=== PATIENT | female | born 1955 | race Two or more races ===

== ENCOUNTER → 2024-05-07 | Outpatient (CLI) | payer OTHER, SELFPAY ==
[2024-05-07 10:52] LABS: Glucose Estimated Average 140 mg/dL (80-131); Hemoglobin A1C 6.5 % Hgb (4.8-6.0)
== END | disposition home or self-care (01) ==
LOC: COPL 09:15
PROVIDERS: PCP Family Medicine; Referring Provider Family Medicine; Visit Provider Family Medicine
DX: E11.65 Type 2 diabetes mellitus with hyperglycemia (principal)
CPT/HCPCS: 36415; 83036

== ENCOUNTER 2024-05-17 05:51 | Emergency (ER) | payer OTHER, SELFPAY ==
[2024-05-17 05:51] VITALS: PULSE 89; RESP 20; O2SAT 98; BMI 26.6
[2024-05-17 06:09] VITALS: BP 145/88; PULSE 72; RESP 17; TEMP 36.8; O2SAT 97
--- NOTE | 2024-05-17 06:35 | PD.EDRME ---
Rapid Medical Screening Exam RME Arrival date/time: 05/17/24 05:51 Chief Complaint: Abdominal Pain Time Seen by Provider: 05/17/24 06:12 Vital signs: Vital Signs Temperature 98.3 F 05/17/24 06:09 Pulse Rate 72 05/17/24 06:09 Respiratory Rate 17 05/17/24 06:09 Blood Pressure 145/88 H 05/17/24 06:09 Pulse Oximetry (%) 97 05/17/24 06:09 Oxygen Delivery Method Room Air 05/17/24 06:09 Vital signs reviewed by provider: Yes RME Narrative: 68-year-old female with past medical history of hypertension and diabetes presents to the ED with right flank pain. She describes it as cramping that radiates to her right up to her upper abdomen. She notes intermittent palpitations and chest pressure at the onset of her symptoms and notes that her blood pressure this morning at home was in the 190s systolic. She denies dysuria, hematuria, cough, shortness of breath, headache, nausea, vomiting.
--- NOTE | 2024-05-17 06:38 | XR_ITS ---
Examination: CT abdomen and pelvis without contrast. Coronal 3-D reconstructions. Sagittal 2-D reconstructions. Date and time of exam:May 17, 2024 0753 hrs. Indications: Right flank pain beginning 4:00 AM this morning, history tiny bilateral renal calculi on CT study August 15, 2016 CTDI: vol (mGy): 7.25 DLP: (mGycm): 388 Technique: Axial images of the abdomen have been obtained, 3 mm slice thickness Intravenous contrast material has not been administered. Low dose protocols were performed. One or more of the following dose reduction techniques were used; automated exposure control, adjustment of the mA and/or KV according to patient size, use of iterative reconstruction technique. Findings: No focal liver or splenic lesions Small gallstones, gallbladder wall appears thickened No pancreatic mass Minimal nodular thickening left adrenal gland 2 mm lower pole right renal calculus coronal image 133 No hydronephrosis or ureteral calculi Aorta normal size Normal appendix Tiny fat-containing umbilical hernia No bowel obstruction or diverticulitis Anteverted uterus Advanced degenerative disc disease L4-L5, L5-S1 Impression: Recommend hepatobiliary sonography follow-up to exclude acute calculus cholecystitis 2 mm lower pole right renal calculus, no hydronephrosis or ureteral calculi Normal appendix
--- NOTE | 2024-05-17 06:39 | XR_ITS ---
Examination: PA lateral chest 2 views Technique: Upright PA lateral chest 2 views Exam date and time: May 17, 2024 Comparison October 15, 2018 Indications: Onset chest pain today Findings: Pulmonary nodule left upper lobe again noted without significant change in size This nodule measures 13 mm, and measured [address] chest November 05, 2018 Normal heart size No pneumonia or pulmonary edema Impression: No interval pneumonia or pulmonary edema
--- NOTE | 2024-05-17 06:39 | EKG_ITS ---
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
[2024-05-17 07:51] LABS: Collection Type, Urine Clean Catch
[2024-05-17 07:53] LABS: Basophils # (Auto) 0.1 Thou/mm3 (0.0-0.2); Basophils % (Auto) 1 % (0-2.5); Eosinophils # (Auto) 0.1 Thou/mm3 (0.0-0.5); Eosinophils % (Auto) 1 % (0-10); Hematocrit 41.2 % (36.0-46.0); Hemoglobin 13.8 g/dL (12.0-16.0); Immature Granulocytes % (Auto) 0 % (0-0); Immature Granulocytes Auto 0.01 Thou/mm3 (0.00-0.00); Lymphocytes # (Auto) 1.7 Thou/mm3 (1.0-4.8); Lymphocytes % (Auto) 24 % (10-50); Mean Corpuscular HGB Conc 33.5 g/dl (31.0-37.0); Mean Corpuscular Hemoglobin 29.2 pg (25.0-35.0); Mean Corpuscular Volume 87 fL (80-100); Monocytes # (Auto) 0.4 Thou/mm3 (0.0-0.8); Monocytes % (Auto) 5 % (0-12); Neutrophils # (Auto) 5.1 Thou/mm3 (1.8-7.7); Neutrophils % (Auto) 69 % (37-80); Nucleated Red Blood Cell % 0 /100 WBC (0); Platelet Count 293 Thou/mm3 (140-440); RDW Standard Deviation 46.1 fL (36.4-46.3); Red Blood Count 4.73 Miln/mm3 (4.00-5.20); White Blood Count 7.4 Thou/mm3 (3.6-11.0)
[2024-05-17 08:01] LABS: Bilirubin,Urine Negative (Negative); Blood,Urine Negative (Negative); Clarity,Urine Clear (Clear/Hazy); Color,Urine Lt-Yellow (Lt Yel-Yel); Glucose, Urine Negative (Negative); Ketones,Urine Trace (Negative); Leukocyte Esterase,Urine Negative (Negative); Nitrite,Urine Negative (Negative); PH,Urine 6.5 (5.0-7.0); Protein,Urine Trace (Neg - Trace); RBC,Urine 7 /hpf (0-3); Specific Gravity,Urine 1.025 (1.001-1.035); Squamous Epithelial Cell,Urine 1 /hpf (0-5); Urobilinogen,Urine Negative mg/dL (0.0-1.0); WBC,Urine 1 /hpf (0-5)
[2024-05-17 08:03] LABS: Amphetamine/Methamp Scrn,U Negative (Negative); Barbiturate Screen,Urine Negative (Negative); Benzodiazepines Screen,Urine Negative (Negative); Benzoylecgonine Screen, Ur Negative (Negative); Fentanyl Screen,Urine Negative (Negative); Opiate Screen,Urine Negative (Negative); THC Screen,Urine Negative (Negative)
[2024-05-17 08:13] LABS: B-Type Natriuretic Peptide < 20 pg/mL (0-100)
[2024-05-17 08:15] LABS: Alanine Aminotransferase 25 U/L (10-49); Albumin, Serum 4.7 gm/dL (3.4-4.8); Albumin/Globulin Ratio 1.8 (1.2-2.2); Alkaline Phosphatase 98 U/L (46-116); Anion Gap 7 (7-16); Aspartate Amino Transferase 20 U/L (0-34); BUN/Creatinine Ratio 30 Ratio (12-20); Bilirubin,Total 0.4 mg/dL (0.3-1.2); Blood Urea Nitrogen 21 mg/dL (9-23); Calcium 9.4 mg/dL (8.3-10.6); Calcium (Corrected) 9.4 mg/dL (8.5-10.1); Carbon Dioxide 26.3 mMol/L (20.0-31.0); Chloride 105 mMol/L (98-107); Creatinine (Component) 0.7 mg/dL (0.6-1.3); Estimated Creatinine Clearance 66.8 mL/min (>60); Globulin 2.6 gm/dL (2.3-3.5); Glucose 138 mg/dL (74-106); Lipase 45 U/L (12-53); Osmolality,Calculated 280 (275-295); Potassium 3.9 mMol/L (3.4-5.1); Sodium 138 mMol/L (136-145); Total Protein 7.3 gm/dL (5.7-8.2); Troponin I < 0.002 ng/mL (0.0-0.045); eGFR > 60 See Note
[2024-05-17 08:34] LABS: Partial Thromboplastin Time 29.7 Seconds (22.0-36.0); Prothrombin Time 10.6 Seconds (9.0-12.2)
--- NOTE | 2024-05-17 08:54 | EDNOTE_ITS ---
ED Abdominal Pain RME/HPI General Chief Complaint: Abdominal Pain Stated complaint: RT FLANK PAIN THIS AM Time seen by provider: 05/17/24 06:12 Arrival date/time: 05/17/24 05:51 Limitations: no limitations RME / HPI RME / HPI narrative: 68-year-old female with past medical history of hypertension and diabetes presents to the ED with right flank pain. She describes it as cramping that radiates to her right up to her upper abdomen. She notes intermittent palpitations and chest pressure at the onset of her symptoms and notes that her blood pressure this morning at home was in the 190s systolic. She denies d ysuria, hematuria, cough, shortness of breath, headache, nausea, vomiting. MD complaint: flank pain Onset (ago): hour(s) Consistency: intermittent Location: R flank Severity: similar to previous episodes Quality: aching Radiation: RUQ Relieving factors: nothing Exacerbating factors: nothing Associated symptoms: other (chest pain ) Related Data Home Medications ?Medication ?Instructions ?Recorded ?Confirmed atorvastatin 10 mg tablet 1 tab PO HS 12/20/21 12/20/21 lisinopril 10 mg tablet 1 tab PO HS 12/20/21 12/20/21 metformin 500 mg tablet 1 tab PO HS 12/20/21 12/20/21 Allergies Allergy/AdvReac Type Severity Reaction Status Date / Time adhesive tape Allergy Verified 05/17/24 05:54 nickel Allergy Verified 05/17/24 05:54 Review of Systems Constitutional Constitutional: Denies chills, Denies fever(s) and Denies poor appetite ENT Ears, Nose, Mouth, and Throat: Denies neck pain and Denies sore throat Cardiovascular Cardiovascular: Reports chest pain (tightness, resolved prior to arrival to the ED. ), Denies diaphoresis, Denies dyspnea, Denies leg edema and Denies radiating jaw, neck or arm pain Respiratory Respiratory: Denies cough, Denies dyspnea and Denies hemoptysis Gastrointestinal Gastrointestinal: Reports abdominal pain, Denies change in bowel habits, Denies cramping, Denies nausea and Denies vomiting Genitourinary Genitourinary: Denies difficulty voiding, Denies dysuria and Denies hematuria Musculoskeletal Musculoskeletal: Reports back pain (right flank ), Denies myalgias, Denies neck pain and Denies tingling Integumentary/Breasts Skin/Breast: Denies rash Neurologic Neurologic: Denies tingling Past Medical History Past Medical History NEUROLOGIC: Negative Neurological Disorders or Seizures CARDIAC: Positive Cardiac Disorders, Hypercholesterolemia and Hypertension; Negative Congestive Heart Failure RESPIRATORY: Negative Chronic Obstructive Pulmonary Disease (COPD) GASTROINTESTINAL: Positive Gastrointestinal Disorders GENITOURINARY: Negative Renal Disease ENDOCRINE: Negative Diabetes Mellitus Type 1 or Diabetes Mellitus Type 2 OTHER HISTORY: Negative Blood Transfusions, Blood Transfusion Reaction or Anesthesia Reactions Family History FAMILY HISTORY: Positive Family Cardiac Disorders (Mother: pacemaker) and Family Cancer (aunts, cousins) Social History SMOKING STATUS: Never smoker ED Exam General Limitations: Present no limitations General appearance: Present alert and in no apparent distress Head Head exam: Present atraumatic and normocephalic Eye Eye exam: Present normal appearance, PERRL and EOMI; Absent scleral icterus ENT ENT exam: Present normal exam, normal oropharynx and mucous membranes moist Neck Neck exam: Present normal inspection and full ROM Chest Chest inspection: Present normal inspection and symmetric chest wall rise Respiratory Respiratory exam: Present normal lung sounds bilaterally; Absent respiratory distress or wheezes Cardiovascular Cardiovascular exam: Present regular rate, +S1 and +S2 Abdominal Exam Abdominal exam: Present soft and normal bowel sounds; Absent distention, tenderness, guarding, rebound, rigidity, Seaman's sign or pulsatile mass Extremities Exam Extremities exam: Present normal inspection and full ROM Back Exam Back exam: Present normal inspection; Absent CVA tenderness (R) or CVA tenderness (L) Neurological Exam Neurological exam: Present alert and normal gait Psychiatric Psychiatric exam: Present normal affect and normal mood Skin Skin exam: Present warm, dry, intact and normal color Course Quality Measures none Orders Category Date Time Status EKG (ED ONLY) *Do not use* NOW Care 05/17/24 06:[address] abdomen pelvis wo con Stat Exams 05/17/24 06:38 Completed EKG (ED Only) Stat Exams 05/17/24 06:39 Draft XR chest 2V Stat Exams 05/17/24 06:39 Completed B-Type Natriuretic Peptide Stat Lab 05/17/24 07:41 Completed CBC Stat Lab 05/17/24 07:41 Completed Comprehensive Metabolic Panel Stat Lab 05/17/24 07:41 Completed Drug Screen,Urine Stat Lab 05/17/24 07:28 Completed Lipase Stat Lab 05/17/24 07:41 Completed Magnesium Stat Lab 05/17/24 07:41 Completed Partial Thromboplastin Time Stat Lab 05/17/24 07:41 Completed Prothrombin Time with INR Stat Lab 05/17/24 07:41 Completed Troponin I Stat Lab 05/17/24 07:41 Completed Urinalysis Stat Lab 05/17/24 07:28 Completed Reevaluation(s) Reevaluation #1: Reevaluated the patient he reports that her pain is improved. We discussed extensively the results of today's workup. She is amenable with the plan to follow-up with her primary care doctor on Saturday with possible HIDA outpatient. I urged her to return to the ED should her pain worsen, she develop a fever, nausea, vomiting. Time: 08:54 Vital Signs Vital signs: Vital Signs Temperature 98.3 F 05/17/24 06:09 Pulse Rate 72 05/17/24 06:09 Respiratory Rate 17 05/17/24 06:09 Blood Pressure 145/88 H 05/17/24 06:09 Pulse Oximetry (%) 97 05/17/24 06:09 Oxygen Delivery Method Room Air 05/17/24 06:09 Pulse ox 97% on room air, within normal limits. Abdominal Pain MDM MDM Narrative MDM Narrative:: 68-year-old female with HTN, HLD, DM presents for evaluation of right flank pain with radiation to her right upper quadrant. Vital signs reassuring. Physical exam unremarkable. Given her multiple risk factors and vague symptoms cardiac workup was obtained which was fortunately negative, went away from ACS. CT abdomen and pelvis without contrast showed possible gallbladder wall thickening with small cholelithiasis. Patient was afebrile with no leukocytosis and no transaminitis and normal bili, pointing away from acute cholecystitis at this time. CT also showed right sided kidney stone without hydronephrosis. Patient declined pain medication after being offered multiple times and was agreeable with plan to follow-up with her primary care doctor within the next 24 to 48 hours for reevaluation and possible HIDA exam. Strict return precautions were provided. Patient was stable at time of discharge. Patient data External records reviewed:: [facility] previous records Clinical information provided by:: patient Social determinants that could affect healthcare access:: none Patient has the following chronic illnesses:: Hyperlipidemia, diabetes, hypertension. How is presenting disease/condition affected by chronic disease/condition?: exacerbated by Evaluation data The following diagnostics were reviewed and interpreted by me:: lab results, radiology exam(s) and EKG tracing(s) Lab and/or radiology exams considered but not ordered:: HIDA exam considered not ordered. Interpretation Summary: CT abdomen pelvis significant for possible gallbladder wall thickening. Right sided nephrolithiasis seen without obstruction or hydronephrosis. UA significant for hematuria without signs of infection. CBC shows no anemia or leukocytosis. CMP with no evidence of endorgan damage or gross electrolyte abnormalities. Chest x-ray without consolidation, no pneumothorax, trachea midline. Troponin negative. EKG with nonspecific ST changes, normal rate, no ST elevation or depression. Medications / Prescriptions Medications or Prescriptions considered but not ordered:: Considered not ordered. Medication administrations:: Considered not ordered. Consultations Consultation(s) initiated? (list below): No Diagnosis Differential diagnosis abdominal pain: abdominal pain, acute appendicitis, calculus of kidney, diverticulitis, gastroenteritis, pancreatitis and other (ACS, cholecystitis, cholelithiasis, gastroenteritis, viral illness.) Most likely diagnosis given after review of the tests above:: Gallbladder wall thickening, cholelithiasis, right sided nephrolithiasis, hematuria. Admission Indicated Admission indicated?: not indicated Admission Request Was there a request for admission?: No Disposition Plan Disposition Plan: Discharge Discharge Attestation Discharge Attestation: The patient and all family members were given an opportunity to ask questions and understood the discharge instructions. Discharge instructions specifically effects, indications for sooner follow up or return to the emergency department, and the expected course of current diagnosis. Patient condition: Stable Discharge Plan Plan Patient Disposition: HOME (Self Care) Disposition Comment: stable Prescriptions/Referrals Prescriptions/Med Rec: No Action metformin 500 mg tablet 1 tab PO HS atorvastatin 10 mg tablet 1 tab PO HS lisinopril 10 mg tablet 1 tab PO HS Patient Comments: TAKE 1 TABLET BY MOUTH EVERY DAY Referrals: Chinyere Fry MD [Primary Care Provider] - In 1 week Problem List Clinical Impression: Thickening of wall of gallbladder, Cholelithiasis, Right nephrolithiasis, Hematuria Patient/Caregiver Discharge Instructions Other Activity Instructions:: Follow-up with primary care in the next 24 to 48 hours as discussed. Consider HIDA exam for mild gallbladder wall thickening. Take Maalox as needed for abdominal pain. Return to the ED if you develop fever, worsening pain, nausea, vomiting, change in symptoms. Education Materials: Treating Gallstones, ED Gallstones with Biliary Colic, ED Hematuria Print Language: Sinhala Stand Alone Forms: Pattie Award Info., Patient Portal Info Letter PA/REGIONAL OPERATIONS DIRECTOR Supervising Physician PA/REGIONAL OPERATIONS DIRECTOR Supervising Physician: Dr. Buckley
== END 2024-05-17 09:33 | disposition home or self-care (01) ==
PROVIDERS: Physician Assistant; Emergency Provider Emergency Medicine; PCP Family Medicine
DX: N20.0 Calculus of kidney (principal); K80.20 Calculus of gallbladder without cholecystitis without obstruction; K82.8 Other specified diseases of gallbladder; R07.9 Chest pain, unspecified; R94.31 Abnormal electrocardiogram [ECG] [EKG]; I10 Essential (primary) hypertension; E78.00 Pure hypercholesterolemia, unspecified
CPT/HCPCS: 36415; 71046; 74176; 80053; 80307; 81001; 83690; 83735; 83880; 84484; 85025; 85610; 85730; 93005; 99284

== ENCOUNTER 2024-06-04 06:21 | Emergency (ER) | payer OTHER, SELFPAY ==
[2024-06-04 06:22] VITALS: BMI 27.6
[2024-06-04 06:28] VITALS: BP 173/76; PULSE 71; RESP 18; TEMP 36.7; O2SAT 97
--- NOTE | 2024-06-04 06:37 | EKG_ITS ---
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
--- NOTE | 2024-06-04 06:37 | XR_ITS ---
Examination: Abdomen sonogram, Limited Date and time of exam: June 04, 2024 0758 hours INDICATIONS: Onset right upper abdominal pain beginning last night Technique: Real-time saravia scale transabdominal sonographic images of the upper abdomen obtained. Findings: Multiple tiny gallstones Gallbladder wall 0.3 cm Common bile duct 0.4 cm Pancreatic head 2.5 cm Liver 16.6 cm no liver lesions Normal hepatopedal portal venous flow Patent IVC IMPRESSION: Cholelithiasis, negative for cholecystitis
--- NOTE | 2024-06-04 06:50 | EDNOTE_ITS ---
ED Abdominal Pain RME/HPI General Chief Complaint: Abdominal Pain Stated complaint: ABD PAIN Time seen by provider: 06/04/24 06:37 Arrival date/time: 06/04/24 06:21 68-year-old female with medical history significant for hypertension, diabetes and hypercholesterolemia with recent diagnosis of cholelithiasis presents to the emergency department today complaints of right upper quadrant abdominal pain patient reports no fever or vomiting patient does report nausea and discomfort in the right upper quadrant Limitations: no limitations Related Data Home Medications ?Medication ?Instructions ?Recorded ?Confirmed atorvastatin 10 mg tablet 1 tab PO HS 12/20/21 12/20/21 lisinopril 10 mg tablet 1 tab PO HS 12/20/21 12/20/21 metformin 500 mg tablet 1 tab PO HS 12/20/21 12/20/21 Allergies Allergy/AdvReac Type Severity Reaction Status Date / Time adhesive tape Allergy Verified 06/04/24 06:24 nickel Allergy Verified 06/04/24 06:24 Review of Systems Review of Systems Systems Reviewed: All systems reviewed, normal except as documented Constitutional Constitutional: Reports system reviewed and no additional complaints, except as documented, Denies fever(s) and Denies headache(s) Eyes Eyes: Reports system reviewed and no additional complaints, except as documented and Denies blurry vision ENT Ears, Nose, Mouth, and Throat: Reports system reviewed and no additional complaints, except as documented, Denies headache(s), Denies nasal congestion and Denies nasal discharge Cardiovascular Cardiovascular: Reports system reviewed and no additional complaints, except as documented, Denies chest pain and Denies dyspnea Respiratory Respiratory: Reports system reviewed and no additional complaints, except as documented, Denies chest congestion, Denies cough and Denies dyspnea Gastrointestinal Gastrointestinal: Reports system reviewed and no additional complaints, except as documented, Reports abdominal pain, Reports nausea and Denies vomiting Integumentary/Breasts Skin/Breast: Reports system reviewed and no additional complaints, except as documented and Denies rash Neurologic Neurologic: Reports system reviewed and no additional complaints, except as documented, Reports as per HPI and Denies headache(s) Past Medical History Past Medical History NEUROLOGIC: Negative Neurological Disorders or Seizures CARDIAC: Positive Cardiac Disorders, Hypercholesterolemia and Hypertension; Negative Congestive Heart Failure RESPIRATORY: Negative Chronic Obstructive Pulmonary Disease (COPD) GASTROINTESTINAL: Positive Gastrointestinal Disorders GENITOURINARY: Negative Renal Disease ENDOCRINE: Negative Diabetes Mellitus Type 1 or Diabetes Mellitus Type 2 OTHER HISTORY: Negative Blood Transfusions, Blood Transfusion Reaction or Anesthesia Reactions Family History FAMILY HISTORY: Positive Family Cardiac Disorders (Mother: pacemaker) and Family Cancer (aunts, cousins) Social History SMOKING STATUS: Never smoker ED Exam General Limitations: Present no limitations General appearance: Present alert and in no apparent distress Head Head exam: Present atraumatic Eye Eye exam: Present normal appearance, PERRL and EOMI ENT ENT exam: Present normal exam, normal oropharynx and mucous membranes moist Neck Neck exam: Present normal inspection, full ROM and trachea midline Chest Chest inspection: Present normal inspection and symmetric chest wall rise Respiratory Respiratory exam: Present normal lung sounds bilaterally Cardiovascular Cardiovascular exam: Present regular rate, normal rhythm and normal heart sounds Abdominal Exam Abdominal exam: Present soft and normal bowel sounds Extremities Exam Extremities exam: Present normal inspection and full ROM Back Exam Back exam: Present normal inspection and full ROM Neurological Exam Neurological exam: Present alert, oriented X3 and CN II-XII intact Psychiatric Psychiatric exam: Present normal affect and normal mood Skin Skin exam: Present warm, dry, intact and normal color Course Quality Measures none Orders Category Date Time Status EKG (ED ONLY) *Do not use* NOW Care 06/04/24 06:37 Completed EKG (ED Only) Stat Exams 06/04/24 06:37 Draft US gall bladder Stat Exams 06/04/24 06:37 Completed CBC Stat Lab 06/04/24 07:05 Completed Comprehensive Metabolic Panel Stat Lab 06/04/24 07:05 Completed Lipase Stat Lab 06/04/24 07:05 Completed Troponin I Stat Lab 06/04/24 07:05 Completed UA, C/S IF [Urinalysis, C/S if Indicated] Stat Lab 06/04/24 07:36 Completed HYDROcodone*/APAP 5/325 [Mckenzie 5/325] Med 06/04/24 07:18 Discontinued 1 tab PO X1 ONE Metoclopramide [Reglan] Med 06/04/24 07:18 Discontinued 10 mg PO X1 ONE Vital Signs Vital signs: Vital Signs Temperature 98.1 F 06/04/24 06:28 Pulse Rate 71 06/04/24 06:28 Respiratory Rate 18 06/04/24 06:28 Blood Pressure 173/76 H 06/04/24 06:28 Pulse Oximetry (%) 97 06/04/24 06:28 Oxygen Delivery Method Room Air 06/04/24 06:28 O2 saturation 97% on room air within normal limits Abdominal Pain MDM MDM Narrative MDM Narrative:: 68-year-old female with medical history significant for hypertension, diabetes and hypercholesterolemia with recent diagnosis of cholelithiasis presents to the emergency department today complaints of right upper quadrant abdominal pain patient reports no fever or vomiting patient does report nausea and discomfort in the right upper quadrant On exam patient well-appearing patient does not appear ill or toxic patient not appear in acute distress On exam patient is right upper quadrant tenderness on palpation Lab work ultrasound EKG obtained Lab work, ultrasound and EKG reviewed by me Ultrasound consistent with cholelithiasis no acute cholecystitis Liver enzymes are normal Troponin is negative EKG is normal Patient discharged home in no distress to follow-up with her surgeon and for worsening symptoms return immediately Patient data External records reviewed:: [facility] previous records Clinical information provided by:: patient Social determinants that could affect healthcare access:: none Patient has the following chronic illnesses:: See history How is presenting disease/condition affected by chronic disease/condition?: caused by Evaluation data The following diagnostics were reviewed and interpreted by me:: lab results, radiology exam(s) and EKG tracing(s) Lab and/or radiology exams considered but not ordered:: Labs, radiology, EKG obtained Interpretation Summary: Reviewed by me Medications / Prescriptions Medications or Prescriptions considered but not ordered:: Given Medication administrations:: Medication Administration History Discontinued Medications Hydrocodone Bitart/Acetaminophen (Hydrocodone/Apap 5/325 Tablet) 1 tab PO X1 ONE Stop: 06/04/24 07:19 Last Admin: 06/04/24 09:02 Dose: Not Given Documented By: AA Non-Admin Reason: Patient Refused Metoclopramide HCl (Metoclopramide 5 Mg Tablet) 10 mg PO X1 ONE Stop: 06/04/24 07:19 Last Admin: 06/04/24 09:02 Dose: Not Given Documented By: AA Non-Admin Reason: Patient Refused Given Consultations Consultation(s) initiated? (list below): Yes Diagnosis Differential diagnosis abdominal pain: abdominal pain, acute appendicitis, calculus of kidney, gastroenteritis, pancreatitis and other (Cholelithiasis, cholecystitis) Most likely diagnosis given after review of the tests above:: Cholelithiasis Admission Indicated Admission indicated?: not indicated Admission Request Was there a request for admission?: No Disposition Plan Disposition Plan: Discharge Discharge Attestation Discharge Attestation: The patient and all family members were given an opportunity to ask questions and understood the discharge instructions. Discharge instructions specifically effects, indications for sooner follow up or return to the emergency department, and the expected course of current diagnosis. Patient condition: Stable Discharge Plan Plan Patient Disposition: HOME (Self Care) Disposition Comment: Stable Prescriptions/Referrals Prescriptions/Med Rec: No Action metformin 500 mg tablet 1 tab PO HS atorvastatin 10 mg tablet 1 tab PO HS lisinopril 10 mg tablet 1 tab PO HS Patient Comments: TAKE 1 TABLET BY MOUTH EVERY DAY Referrals: Chinyere Fry MD [Primary Care Provider] - In 1 week Problem List Clinical Impression: Cholelithiasis Patient/Caregiver Discharge Instructions Education Materials: Treating Gallstones Additional Instructions: Please follow-up with your general surgeon as discussed for worsening symptoms or concerns return to the ER immediately Print Language: Eritrean Stand Alone Forms: Pattie Award Info., Patient Portal Info Letter PA/WIND TURBINE MECHANIC Supervising Physician PA/WIND TURBINE MECHANIC Supervising Physician: Dr. Garrido
[2024-06-04 07:15] LABS: Basophils # (Auto) 0.1 Thou/mm3 (0.0-0.2); Basophils % (Auto) 1 % (0-2.5); Eosinophils # (Auto) 0.1 Thou/mm3 (0.0-0.5); Eosinophils % (Auto) 1 % (0-10); Hematocrit 39.7 % (36.0-46.0); Hemoglobin 13.3 g/dL (12.0-16.0); Immature Granulocytes % (Auto) 0 % (0-0); Immature Granulocytes Auto 0.02 Thou/mm3 (0.00-0.00); Lymphocytes # (Auto) 1.3 Thou/mm3 (1.0-4.8); Lymphocytes % (Auto) 16 % (10-50); Mean Corpuscular HGB Conc 33.5 g/dl (31.0-37.0); Mean Corpuscular Volume 87 fL (80-100); Monocytes # (Auto) 0.3 Thou/mm3 (0.0-0.8); Monocytes % (Auto) 4 % (0-12); Neutrophils # (Auto) 6.3 Thou/mm3 (1.8-7.7); Neutrophils % (Auto) 78 % (37-80); Nucleated Red Blood Cell % 0 /100 WBC (0); Platelet Count 281 Thou/mm3 (140-440); RDW Standard Deviation 43.8 fL (36.4-46.3); Red Blood Count 4.59 Miln/mm3 (4.00-5.20); White Blood Count 8.1 Thou/mm3 (3.6-11.0)
[2024-06-04 07:32] LABS: Alanine Aminotransferase 22 U/L (10-49); Albumin/Globulin Ratio 2.1 (1.2-2.2); Alkaline Phosphatase 104 U/L (46-116); Anion Gap 6 (7-16); Aspartate Amino Transferase 16 U/L (0-34); BUN/Creatinine Ratio 20 Ratio (12-20); Bilirubin,Total 0.4 mg/dL (0.3-1.2); Blood Urea Nitrogen 16 mg/dL (9-23); Calcium 9.7 mg/dL (8.3-10.6); Calcium (Corrected) 9.7 mg/dL (8.5-10.1); Carbon Dioxide 27.4 mMol/L (20.0-31.0); Chloride 101 mMol/L (98-107); Creatinine (Component) 0.8 mg/dL (0.6-1.3); Globulin 2.4 gm/dL (2.3-3.5); Glucose 157 mg/dL (74-106); Lipase 42 U/L (12-53); Osmolality,Calculated 272 (275-295); Potassium 3.7 mMol/L (3.4-5.1); Sodium 134 mMol/L (136-145); Total Protein 7.4 gm/dL (5.7-8.2); Troponin I < 0.002 ng/mL (0.0-0.045); eGFR > 60 See Note
[2024-06-04 07:41] LABS: Collection Type, Urine Clean Catch
[2024-06-04 08:20] LABS: Amorphous Crystals,Urine Present (Absent); Bilirubin,Urine Negative (Negative); Blood,Urine Negative (Negative); Color,Urine Lt-Yellow (Lt Yel-Yel); Culture Indicated,Urine Not Indicated; Glucose, Urine Trace (Negative); Ketones,Urine Negative (Negative); Leukocyte Esterase,Urine Negative (Negative); Nitrite,Urine Negative (Negative); PH,Urine 7.5 (5.0-7.0); Protein,Urine Negative (Neg - Trace); RBC,Urine 6 /hpf (0-3); Specific Gravity,Urine 1.017 (1.001-1.035); Squamous Epithelial Cell,Urine 1 /hpf (0-5); Urobilinogen,Urine Negative mg/dL (0.0-1.0); WBC,Urine 1 /hpf (0-5)
[2024-06-04 09:03] LABS: Clarity,Urine Hazy (Clear/Hazy)
[2024-06-04 09:50] VITALS: BP 114/75; PULSE 77; RESP 18; TEMP 37.1; O2SAT 96
[2024-06-04 10:41] VITALS: BP 122/77; PULSE 74; RESP 12; O2SAT 95
== END 2024-06-04 10:41 | disposition home or self-care (01) ==
PROVIDERS: Nurse Practitioner Primary Care; Emergency Provider Emergency Medicine; PCP Family Medicine
DX: K80.20 Calculus of gallbladder without cholecystitis without obstruction (principal); I10 Essential (primary) hypertension; E11.9 Type 2 diabetes mellitus without complications; E78.00 Pure hypercholesterolemia, unspecified
CPT/HCPCS: 36415; 76705; 80053; 81001; 83690; 84484; 85025; 93005; 99284

== ENCOUNTER 2024-06-05 05:30 | Day surgery (SDC) | payer OTHER, SELFPAY ==
[2024-06-04 12:12] VITALS: BMI 27.8
[2024-06-04 13:26] LABS: Partial Thromboplastin Time 30.5 Seconds (22.0-36.0); Prothrombin Time 10.9 Seconds (9.0-12.2)
[2024-06-05] VITALS (8 sets, daily range): BP systolic 116–143; BP diastolic 63–79; PULSE 59–76; RESP 13–20; TEMP 36.3–36.9; O2SAT 92–98; BMI 27.3
[2024-06-05] MEDS: RINGERS LACTATED 1000 ML 1,000 ML 20 ML IV (06:37)
--- NOTE | 2024-06-05 07:40 | CHAP ---
Patient expressed gratitude for prayer before their procedure.
--- NOTE | 2024-06-05 09:45 | SUR.PHASEI ---
0945: Pt. AAOx4, vitals stable, breathing unlabored, no signs of distress, x4 dressing sites to ABD CDI, no active bleed noted, report received from MD Timmons and Brianna NULL.
[2024-06-05] MEDS: fentaNYL CIT INJ 50 mCg/ML AMP 2ML 25 MCG IV ×2 (09:59→10:08)
--- NOTE | 2024-06-05 10:09 | PD.SUROPNT ---
Date of Procedure 06/05/24 Pre Op Diagnosis Symptomatic cholelithiasis with recurrent biliary colic Post Op Diagnosis Same Procedure Laparoscopic cholecystectomy Findings Patient was found to have a noninflamed gallbladder but rather a dilated cystic duct with no stones but sludge and possibly some tissues looking like neoplasm Procedure Description After endotracheal anesthesia was given the patient was placed in supine position and the abdomen was prepped with chloroprep solution and draped in a sterile manner. After time out was performed I injected a few cc of of half percent Marcaine with epinephrine below the umbilicus and I made an incision for about 3 cm in length. The patient had a midline incision starting from the umbilicus down towards the pubic symphysis and therefore I did not want to use Veress needle for fear of injury to the bowel. I made a vertical incision and dissected out the fascia and inserted my finger and release some adhesions. Then I passed a 12 mm trocar to create a pneumoperitoneum up to 15 mmHg. I found extensive adhesions over the umbilical region making it difficult to introduce the trocar. Then introduced a 12 mm trocar and a 10 mm camera through the fascia and I inspected the intra-abdominal organs as well as the gallbladder and the liver. Another 5 mm trocar was inserted in the epigastric region under direct vision after injecting some local anesthesia. At this time the patient was kept in reverse Trendelenburg position with the left lateral tilt. The third 5 mm trocar was inserted over the mid axillary line under direct vision and a Dale and Gekaren grasper was used to hold the fundus of the gallbladder. The retraction was carried out by the assistant program director moving the fundus of the gallbladder towards the right shoulder of the patient to create enough traction. I placed a another 5 mm trocar in the midaxillary line just lateral to the rectus muscle under direct vision. I used a fenestrated grasper to retract the neck of the gallbladder laterally towards the patient's right hip. I noticed a considerable amount of adhesions over the umbilical region and in the suprapubic region under the lysed all these adhesions using harmonic jaycob before proceeding with the surgery. The Calot's triangle was exposed and I achieved the critical view of safety as follows: I dissected out the fatty tissue from the hepatocystic triangle and cleared this area. I also dissected inferior and posterior to the gallbladder to identify the cystic duct and the gallbladder wall. Then superiorly I dissected along the cystic plate up to lower one third third of the gallbladder to lift the gallbladder from the liver. At this time I confirmed that only 2 structures entering the gallbladder were cystic artery and the cystic duct. The cystic duct was very dilated and seemed to contain stone. Therefore I placed a clip on the gallbladder side and opened the cystic duct and milked retrograde to see if there were any stones. No stones were seen but there were some tissues which appeared suspicious for neoplasm coming out of the cystic duct. This was sent for histopathological examination. The common duct was seen distally but no dissection was carried out around the duct. I did not see any need for operative cholangiogram in this patient. Since the cystic duct was very wide I changed the epigastric port to a 12 mm trocar and used an extra-large clip product expert to clip the cystic duct which is more than a centimeter in diameter. The cystic duct was clipped doubly and then divided and cystic artery was similarly dealt with. Then the gallbladder was removed from the liver bed using Harmonic jaycob to control the small blood vessels as the dissection proceeded. Then the gallbladder was from the liver bed completely and delivered through the umbilical port using an Endopouch. The liver bed was coagulated with cautery to obtain satisfactory hemostasis. The trocars were pulled out from the abdominal cavity and the fascia at the umbilical incision was closed with interrupted 0 Ethibond. Subcutaneous tissues was closed with 3-0 chromic and injected a few cc of half percent Marcaine with epinephrine and the skin was closed with interrupted 4-0 Monocryl subcuticular stitches at all the trocar sites. Dressing was applied with 2 x 2 and Tegaderm. Patient tolerated the procedure well and returned to recovery room in stable condition. Anesthesia GETA Pathology / specimen Other (1. Gallbladder with stones, #2 cystic duct material suspicious for neoplasm) Estimated Blood Loss 50 Surgeon Tova Demarco MD Surgical Staff Operation Date: 06/05/24 08:15 Case Staff Anesthesiologist: Clemente Timmons RN First Assistant: Carmela Maxwell
[2024-06-05] MEDS: ACETAMINOPHEN IVPB 1,000 MG/100 ML VIAL 250 MG IV (10:18)
--- NOTE | 2024-06-05 10:50 | SUR.PHASEII ---
1050: Pt. AAOx4, vitals stable, breathing unlabored, no complaint of pain or nausea, X4 Dressing to ABD CDI, no active bleed noted, pt. tolerated sips of 7up well, pt. ambulated to wheelchair with steady gait and minimal assist, no complications. Gave discharge instructions to the pt. and her ride, both verbalized understanding and had no further questions. Pt. left with all personal belongings.
== END 2024-06-05 10:50 | disposition home or self-care (01) ==
PROVIDERS: PCP Family Medicine; Referring Provider Surgery; Visit Provider Surgery
PROC: 0FT44ZZ Resection of Gallbladder, Percutaneous Endoscopic Approach (ICD-10-PCS; CPT 47562; principal; 2024-06-05 08:00)
DX: C24.0 Malignant neoplasm of extrahepatic bile duct (principal); K80.10 Calculus of gallbladder with chronic cholecystitis without obstruction
CPT/HCPCS: 47562; 36415; 85610; 85730; A4217; A4649; J0131; J0461; J1100; J2250; J2371; J2405; J2704; J3010; J3490; J7120; A9270

== ENCOUNTER 2024-06-06 19:18 | Emergency (ER) | payer OTHER, SELFPAY ==
[2024-06-06 19:19] VITALS: BMI 27.3
[2024-06-06 20:13] VITALS: BP 163/88; PULSE 79; RESP 18; TEMP 36.8; O2SAT 95
--- NOTE | 2024-06-06 20:22 | EDNOTE_ITS ---
<Statement entered by Mikala Liang MD - 06/17/24 17:39> As co-signing physician, I was present and available for consult prn. I concur with the plan and care as documented by the midlevel provider. ED Abdominal Pain RME/HPI General Chief Complaint: Abdominal Pain Stated complaint: ABD PAIN, FEVER, HIGH BP Time seen by provider: 06/06/24 20:08 Arrival date/time: 06/06/24 19:18 RME / HPI RME / HPI narrative: 68-year-old female patient with significant history of hypertension diabetes mellitus, status post laparoscopic cholecystectomy yesterday, came in for evaluation regarding skin bruising below the laparoscopic cholecystectomy site more on the umbilical area and epigastric area, noticed it today. Denies any abdominal pain denies any other complaints. Patient is also worried because her blood pressure was slightly elevated prior to arrival. No fever no vomiting patient is ambulatory. Patient was decorating a [place] tree today. Related Data Home Medications ?Medication ?Instructions ?Recorded ?Confirmed atorvastatin 10 mg tablet 1 tab PO HS 12/20/21 06/04/24 lisinopril 10 mg tablet 1 tab PO HS 12/20/21 06/04/24 metformin 500 mg tablet 1 tab PO HS 12/20/21 06/04/24 Allergies Allergy/AdvReac Type Severity Reaction Status Date / Time adhesive tape Allergy Verified 06/06/24 19:21 nickel Allergy Verified 06/06/24 19:21 Review of Systems Review of Systems Narrative Review of Systems: Review of system reviewed and within normal limits except mentioned in HPI ED Exam Narrative Physical exam: VITAL SIGNS: Reviewed. GENERAL APPEARANCE: Alert and interactive, follows commands, no acute distress, HEAD AND FACE: Non-traumatic. ENT: PERRL, pink conjunctivitis, eyelid no trauma, Mucous membrane moist. NECK: Supple, nontender, no nuchal rigidity. CHEST: No tenderness, no crepitus, no paradoxical movement, no retractions. LUNGS: Clear, well ventilated, symmetric, no rales, no wheezing, no ronchi, no stridor, good breath sounds bilaterally. HEART: Regular rate, regular rhythm, no murmur, no gallops. ABDOMEN: Soft, positive bowel sounds, nondistended, no guarding, nontender, no r ebound, no masses, status post laparoscopic cholecystectomy, bruising noted on the epigastric area, and umbilical area, nontender nonfluctuant no drainage surgical wound is dry well coaptated and nontender RECTAL: Deferred. GENITAL: Deferred. NEUROLOGICAL: Gross motor function intact sensory function intact, Appropriate for age. MUSCULOSKELETAL: low back nontender, full range of motion. EXTREMITIES: Nontender, full range of motion. SKIN: Color pink, dry, no rash, no lacerations, no abrasions, no contusions. LYMPHATICS: Deferred. Course Quality Measures none Vital Signs Vital signs: Vital Signs Temperature 98.2 F 06/06/24 20:13 Pulse Rate 79 06/06/24 20:13 Respiratory Rate 18 06/06/24 20:13 Blood Pressure 163/88 H 06/06/24 20:13 Pulse Oximetry (%) 95 06/06/24 20:13 Oxygen Delivery Method Room Air 06/06/24 20:13 Abdominal Pain MDM MDM Narrative MDM Narrative:: 68-year-old female patient with significant history of hypertension diabetes mellitus, status post laparoscopic cholecystectomy yesterday, came in for evaluation regarding skin bruising below the laparoscopic cholecystectomy site more on the umbilical area and epigastric area, noticed it today. Denies any abdominal pain denies any other complaints. Patient is also worried because her blood pressure was slightly elevated prior to arrival. No fever no vomiting patient is ambulatory. Patient was decorating a [place] tree today. Patient's bruising is normal postop, I did not notice any abdominal pain. Patient is stable, imaging or workup is not needed at this time. Patient supercharge Patient data External records reviewed:: None Clinical information provided by:: patient Social determinants that could affect healthcare access:: none Patient has the following chronic illnesses:: None How is presenting disease/condition affected by chronic disease/condition?: exacerbated by Evaluation data The following diagnostics were reviewed and interpreted by me:: lab results Lab and/or radiology exams considered but not ordered:: None Interpretation Summary: None Medications / Prescriptions Medications or Prescriptions considered but not ordered:: None Medication administrations:: None Consultations Consultation(s) initiated? (list below): No Diagnosis Differential diagnosis abdominal pain: abdominal pain and other (Bruising, postop, wound check,) Most likely diagnosis given after review of the tests above:: Postop bruising Admission Indicated Admission indicated?: not indicated Explain why admission is indicated or not indicated:: Stable Admission Request Was there a request for admission?: No Disposition Plan Disposition Plan: Discharge Discharge Attestation Discharge Attestation: The patient and all family members were given an opportunity to ask questions and understood the discharge instructions. Discharge instructions specifically effects, indications for sooner follow up or return to the emergency department, and the expected course of current diagnosis. Patient condition: Stable Discharge Plan Plan Patient Disposition: HOME (Self Care) Disposition Comment: stable Prescriptions/Referrals Prescriptions/Med Rec: No Action metformin 500 mg tablet 1 tab PO HS atorvastatin 10 mg tablet 1 tab PO HS lisinopril 10 mg tablet 1 tab PO HS Patient Comments: TAKE 1 TABLET BY MOUTH EVERY DAY Problem List Clinical Impression: Postoperative ecchymosis Patient/Caregiver Discharge Instructions Discharge Activity: activity as tolerated Education Materials: First Aid: Bleeding Additional Instructions: Thank you for the opportunity for serving you today. You are stable for discharged . You are advised to: Follow-up with your PCP in 1 to 2 days Return to ED for worsening of symptoms Increase oral fluids Continue taking your pain medication as prescribed by your surgeon It is normal to have postop bruising. Nothing to worry at this time. Print Language: Setswana Stand Alone Forms: Pattie Award Info., Patient Portal Info Letter ZAHRA/STEPHEN Supervising Physician ZAHRA/STEPHEN Supervising Physician: MD Azul
== END 2024-06-06 20:57 | disposition home or self-care (01) ==
PROVIDERS: Emergency Provider Emergency Medicine
DX: L76.32 Postprocedural hematoma of skin and subcutaneous tissue following other procedure (principal); Y83.8 Other surgical procedures as the cause of abnormal reaction of the patient, or of later complication, without mention of misadventure at the time of the procedure
CPT/HCPCS: 99281

== ENCOUNTER 2024-06-07 14:31 | Emergency (ER) | payer OTHER, SELFPAY ==
[2024-06-07] VITALS (8 sets, daily range): BP systolic 131–184; BP diastolic 75–94; PULSE 61–93; RESP 16–18; TEMP 36.7–37.1; O2SAT 96–98
--- NOTE | 2024-06-07 15:20 | PD.EDRME ---
Rapid Medical Screening Exam RME Arrival date/time: 06/07/24 14:31 Chief Complaint: General Adult/Misc Complain Time Seen by Provider: 06/07/24 15:02 Vital signs: Vital Signs Temperature 98.2 F 06/07/24 14:36 Pulse Rate 69 06/07/24 14:36 Respiratory Rate 17 06/07/24 14:36 Blood Pressure 177/80 H 06/07/24 14:36 Pulse Oximetry (%) 96 06/07/24 14:36 Oxygen Delivery Method Room Air 06/07/24 14:36 RME Narrative: Reports elevated blood pressure at home today. Takes her hypertensive medications at night so no BP meds yet taken today. c/o generalized weakness and left arm tingling
--- NOTE | 2024-06-07 15:21 | XR_ITS ---
Examination: PA chest single view Technique: Upright PA chest single view Exam date and time: June 07, 2024 1537 hrs. Comparison June 16, 2024 Indications: Onset generalized weakness today Findings: Normal heart size No pneumonia or pulmonary edema 16mm pulmonary nodule left upper lobe, please see the CT chest report November 05, 2018 Intact osseous structures Impression: No interval pneumonia or pulmonary edema
[2024-06-07 15:54] LABS: Basophils # (Auto) 0.1 Thou/mm3 (0.0-0.2); Basophils % (Auto) 1 % (0-2.5); Eosinophils # (Auto) 0.1 Thou/mm3 (0.0-0.5); Eosinophils % (Auto) 1 % (0-10); Hematocrit 39.8 % (36.0-46.0); Hemoglobin 13.2 g/dL (12.0-16.0); Immature Granulocytes % (Auto) 0 % (0-0); Immature Granulocytes Auto 0.04 Thou/mm3 (0.00-0.00); Lymphocytes # (Auto) 4.1 Thou/mm3 (1.0-4.8); Lymphocytes % (Auto) 38 % (10-50); Mean Corpuscular HGB Conc 33.2 g/dl (31.0-37.0); Mean Corpuscular Hemoglobin 29.1 pg (25.0-35.0); Mean Corpuscular Volume 88 fL (80-100); Monocytes # (Auto) 0.8 Thou/mm3 (0.0-0.8); Monocytes % (Auto) 8 % (0-12); Neutrophils # (Auto) 5.6 Thou/mm3 (1.8-7.7); Neutrophils % (Auto) 52 % (37-80); Nucleated Red Blood Cell % 0 /100 WBC (0); Platelet Count 293 Thou/mm3 (140-440); RDW Standard Deviation 46.4 fL (36.4-46.3); Red Blood Count 4.54 Miln/mm3 (4.00-5.20); White Blood Count 10.6 Thou/mm3 (3.6-11.0)
[2024-06-07 16:08] LABS: B-Type Natriuretic Peptide 63 pg/mL (0-100)
[2024-06-07 16:11] LABS: Alanine Aminotransferase 39 U/L (10-49); Albumin/Globulin Ratio 1.9 (1.2-2.2); Alkaline Phosphatase 102 U/L (46-116); Anion Gap 8 (7-16); Aspartate Amino Transferase 17 U/L (0-34); BUN/Creatinine Ratio 23 Ratio (12-20); Bilirubin,Total 0.4 mg/dL (0.3-1.2); Blood Urea Nitrogen 18 mg/dL (9-23); Calcium 9.8 mg/dL (8.3-10.6); Calcium (Corrected) 9.8 mg/dL (8.5-10.1); Carbon Dioxide 26.7 mMol/L (20.0-31.0); Chloride 103 mMol/L (98-107); Creatinine (Component) 0.8 mg/dL (0.6-1.3); Globulin 2.6 gm/dL (2.3-3.5); Glucose 126 mg/dL (74-106); Osmolality,Calculated 279 (275-295); Potassium 3.5 mMol/L (3.4-5.1); Sodium 138 mMol/L (136-145); Total Protein 7.6 gm/dL (5.7-8.2); Troponin I < 0.002 ng/mL (0.0-0.045); eGFR > 60 See Note
--- NOTE | 2024-06-07 18:34 | PD.EDADULT ---
ED General RME/HPI General Chief complaint: General Adult/Misc Complain Stated complaint: HIGH BLOOD PRESSURE Time Seen by Provider: 06/07/24 15:02 Arrival date/time: 06/07/24 14:31 RME / HPI RME / HPI narrative: Reports elevated blood pressure at home today. Takes her hypertensive medications at night so no BP meds yet taken today. c/o generalized weakness and left arm tingling DR. LIANG MAIN ED EVALUATION: 68 year old female presents to the Emergency Department with complaints of high blood pressure today and generalized weakness. She also complains of mild left parietal headache and tingling in her left fingers. She states she has a history of aneurysm which she states was diagnosed at [facility] and she was subsequently transferred out. I reviewed [facility] records. 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 Denies vision changes. Denies vision changes. Mild dizziness. PMHx: Hypertension, diabetes, and hyperlipidemia. Social Hx: No tobacco, alcohol, or substance use. Related Data Home Medications ?Medication ?Instructions ?Recorded ?Confirmed atorvastatin 10 mg tablet 1 tab PO HS 12/20/21 06/04/24 lisinopril 10 mg tablet 1 tab PO HS 12/20/21 06/04/24 metformin 500 mg tablet 1 tab PO HS 12/20/21 06/04/24 Allergies Allergy/AdvReac Type Severity Reaction Status Date / Time adhesive tape Allergy Severe Hives Verified 06/07/24 14:56 nickel Allergy Severe Hives Verified 06/07/24 14:56 Review of Systems Review of Systems Systems Reviewed: All systems reviewed, normal except as documented Narrative Review of Systems: GEN: No fever, no chills, no weight loss EYES: No discharge, no visual changes, no pain HEENT: No ear pain, no congestion, no sore throat PULM: No shortness of breath, no cough, no congestion CV: No chest pain, no dyspnea on exertion, no palpitations GI: No nausea, no vomiting, no diarrhea, no pain, no constipation : No frequency, no urgency and no dysuria MUSC/SKEL: No joint pain, no back pain SKIN: No rash PSYCH: No hallucinations, no depression HEME/LYMPH: No easy bleeding or bruising tendencies NEURO: + generalized weakness, no headache Past Medical History Past Medical History CARDIAC: Positive Cardiac Disorders, Hypercholesterolemia and Hypertension GASTROINTESTINAL: Positive Gastrointestinal Disorders, Gall Bladder Disease and Obesity REPRODUCTIVE: Positive Previous Pregnancies MUSCULOSKELETAL: Positive Musculoskeletal Disorders and Arthritis ENT: Positive Cataracts and Glaucoma ENDOCRINE: Positive Endocrine Disorders and Diabetes Mellitus Type 2 OTHER HISTORY: Positive Hospitalization, Chicken Pox and Mumps Family History FAMILY HISTORY: Positive Family Cardiac Disorders, Family Cancer and Family Surgery Social History SMOKING STATUS: Never smoker SUBSTANCE USE: does not use ALCOHOL: Never ED Exam Narrative Physical exam: GENERAL APPEARANCE: alert and oriented x 4, well-developed, well-nourished, no acute distress VITALS: All vitals were reviewed and the pulse ox is 97% on room air, which is normal according to my interpretation. HEENT: Normocephalic, atraumatic; pupils equal, round, reactive to light; EOMI; mucous membranes pink, moist; oropharynx clear NECK: Supple LUNGS: CTABL; no wheezes, no rales, no rhonchi HEART: Regular rate, regular rhythm; normal S1, S2; no murmurs ABDOMEN: non distended; normal BS; soft, no tenderness, no guarding, no rebound; no masses, no organomegaly, no hernia BACK: no CVA tenderness EXTREMITIES: atraumatic; no edema NEUROLOGIC: awake; alert and oriented x4; cranial nerves II-XII grossly intact; no focal sensory or motor deficits PSYCHIATRIC: Flat affect SKIN: warm, dry, normal color; no rashes Course Quality Measures none Orders Category Date Time Status CT Screening NOW Care 06/07/24 19:36 Completed EKG (ED ONLY) *Do not use* NOW Care 06/07/24 15:22 Completed Insert IV NOW Care 06/07/24 19:[address] angio carotid w head w Stat Exams 06/07/24 19:[address] head/brain wo con Stat Exams 06/07/24 19:37 Completed CXR [XR chest 1V] Stat Exams 06/07/24 15:21 Completed EKG (ED Only) Stat Exams 06/07/24 15:21 Ordered BNP [B-Type Natriuretic Peptide] Stat Lab 06/07/24 15:42 Completed CBC Stat Lab 06/07/24 15:42 Completed CMP [Comprehensive Metabolic Panel] Stat Lab 06/07/24 15:42 Completed Troponin I Stat Lab 06/07/24 15:42 Completed Troponin I Stat Lab 06/07/24 18:40 Completed hydrALAZINE INJ [Apresoline Inj] Med 06/07/24 19:40 Discontinued 10 mg IV X1 ONE Reevaluation(s) Reevaluation #1: Patient remains clinically stable throughout the emergency department visit. Re-assessment at the time of disposition demonstrates that the patient is in no acute distress. We reviewed all the results, analysis, and treatment plans. Patient is amenable to discharge. Strict return precautions were outlined. Patient was discharged in stable condition. Time: 22:20 Vital Signs Vital signs: Vital Signs Temperature 98.2 F 06/07/24 14:36 Pulse Rate 69 06/07/24 14:36 Respiratory Rate 17 06/07/24 14:36 Blood Pressure 177/80 H 06/07/24 14:36 Pulse Oximetry (%) 96 06/07/24 14:36 Oxygen Delivery Method Room Air 06/07/24 14:36 [facility] Patient data External records reviewed:: [facility] previous records (Reviewed last ED visit dated 06/06/24, discharged with the following: Postoperative ecchymosis.) Clinical information provided by:: patient Social determinants that could affect healthcare access:: none Patient has the following chronic illnesses:: Hypertension, diabetes, and hyperlipidemia. How is presenting disease/condition affected by chronic disease/condition?: caused by Evaluation data The following diagnostics were reviewed and interpreted by me:: lab results, radiology exam(s) and EKG tracing(s) Lab and/or radiology exams considered but not ordered:: none Interpretation Summary: Procedure(s): CT head/brain wo con Accession Number(s): [id number] cc: Larry Arguello MD; Chinyere Goodrich MD; Mikala Liang MD~ Examination: CT brain head without contrast. 2-D sagittal coronal reconstructions Date and time of exam:June 07, 20242038 hrs. Indications: High blood pressure with headache today Comparison: May 21, 2020 CTDI: vol (mGy):46.7 DLP: (mGycm):936 Technique: Multiple CT axial sections of the brain have been obtained, 5 mm slice thickness. Contrast has not been administered. 2-D sagittal, coronal reconstructions have been obtained Low dose protocols were performed. One or more of the following dose reduction techniques were used; automated exposure control, adjustment of the mA and/or KV according to patient size, use of iterative reconstruction technique. Findings: No significant ventricular enlargement. Intra-axial or extra-axial hemorrhage density is not seen. No mass effect or midline shift Basal cisterns are not remarkable. Fourth ventricle is midline. Cranial vault intact. Impression: Negative for acute hemorrhage, mass effect or midline shift Dictated By: Larry Arguello MD Procedure(s): CT angio carotid w head w Accession Number(s): [id number] cc: Larry Arguello MD; Chinyere Goodrich MD; Mikala Liang MD~ Examination: CTA carotids with intravenous contrast CTA brain, head with intravenous contrast. 2-D sagittal, coronal reconstructions. 3-D reconstructions. Exam date and time: June 07, 20242040 hrs. Indications: High blood pressure with headache today CTDI: vol (mGy) 31.43 DLP: (mGycm) 494 Technique: Multiple CTA axial brain, head carotid images post intravenous contrast injection 75 cc, Isovue-370. 2-D sagittal, coronal reconstructions. 3-D reconstructions, 3-D post processing including vascular maximum intensity projection images. Low dose protocols were performed. One or more of the following dose reduction techniques were used; automated exposure control, adjustment of the mA and/or KV according to patient size, use of iterative reconstruction technique. Findings: No significant common carotid carotid bifurcation or internal carotid artery stenoses Moderate calcification left carotid bifurcation Dominant right vertebral artery Bilateral thyroid nodules, the largest right thyroid 7 mm No cerebral large vessel arterial occlusions, thrombus, dissection or cerebral aneurysm Impression: No significant neck arterial stenoses No cerebral large vessel arterial occlusions, thrombus, dissection or cerebral aneurysm Dictated By: Larry Arguello MD Procedure(s): XR chest 1V Accession Number(s): [id number] cc: Larry Arguello MD; Oz Mendes PA-C~ Examination: PA chest single view Technique: Upright PA chest single view Exam date and time: June 07, 2024 1537 hrs. Comparison June 16, 2024 Indications: Onset generalized weakness today Findings: Normal heart size No pneumonia or pulmonary edema 16mm pulmonary nodule left upper lobe, please see the CT chest report November 05, 2018 Intact osseous structures Impression: No interval pneumonia or pulmonary edema Dictated By: Larry Arguello MD Medications Medications considered but not ordered:: none Medication administrations:: Medication Administration History Discontinued Medications Hydralazine HCl (Hydralazine Inj 20 Mg/Ml Vial) 10 mg IV X1 ONE Stop: 06/07/24 19:41 Last Admin: 06/07/24 20:01 Dose: 10 mg Documented By: CVL see above Consultations Consultation(s) initiated? (list below): No Diagnosis Differential Diagnosis ED Complaint MDM: hypertensive emergency, UTI, dehydration, electrolyte imbalance Most likely diagnosis given after review of the tests above:: Headache Paresthesia Generalized weakness Admission Indicated Admission indicated?: not indicated Explain why admission is indicated or not indicated:: Patient has no emergent abnormalities on his studies and can be managed on an outpatient basis. Admission Request Was there a request for admission?: No Disposition Plan Disposition Plan: Discharge Discharge Attestation Discharge Attestation: The patient and all family members were given an opportunity to ask questions and understood the discharge instructions. Discharge instructions specifically effects, indications for sooner follow up or return to the emergency department, and the expected course of current diagnosis. Patient condition: Stable Medical Decision Making Differential Diagnosis Differential Diagnosis: hypertensive emergency, UTI, dehydration, electrolyte imbalance Lab Data 06/07/24 15:42 06/07/24 15:42 Labs: Lab Results 06/07/24 06/07/24 Range/Units 15:42 18:40 WBC 10.6 (3.6-11.0) Thou/mm3 RBC 4.54 (4.00-5.20) Miln/mm3 Hgb 13.2 (12.0-16.0) g/dL Hct 39.8 (36.0-46.0) % MCV 88 (80-100) fL MCH 29.1 (25.0-35.0) pg MCHC 33.2 (31.0-37.0) g/dl RDW Std Deviation 46.4 H (36.4-46.3) fL Plt Count 293 (140-440) Thou/mm3 Neut % (Auto) 52 (37-80) % Lymph % (Auto) 38 (10-50) % [place] % (Auto) 8 (0-12) % Eos % (Auto) 1 (0-10) % Baso % (Auto) 1 (0-2.5) % Neut # (Auto) 5.6 (1.8-7.7) Thou/mm3 Lymph # (Auto) 4.1 (1.0-4.8) Thou/mm3 [place] # (Auto) 0.8 (0.0-0.8) Thou/mm3 Eos # (Auto) 0.1 (0.0-0.5) Thou/mm3 Baso # (Auto) 0.1 (0.0-0.2) Thou/mm3 Immature Gran # (Auto) 0.04 H (0.00-0.00) Thou/mm3 Absolute Nucleated RBC 0.00 (0.00-0.00) Thou/mm3 Immature Gran % 0 (0-0) % Nucleated RBC % 0 (0) /100 WBC Sodium 138 (136-145) mMol/L Potassium 3.5 (3.4-5.1) mMol/L Chloride 103 (98-107) mMol/L Carbon Dioxide 26.7 (20.0-31.0) mMol/L Anion Gap 8 (7-16) BUN 18 (9-23) mg/dL Creatinine 0.8 (0.6-1.3) mg/dL Estim Creat Clear Calc Not Performed. eGFR > 60 (60 - ) See Note BUN/Creatinine Ratio 23 H (12-20) Ratio Glucose 126 H (74-106) mg/dL Calculated Osmolality 279 (275-295) Calcium 9.8 (8.3-10.6) mg/dL Corrected Calcium 9.8 (8.5-10.1) mg/dL Total Bilirubin 0.4 (0.3-1.2) mg/dL AST 17 (0-34) U/L ALT 39 (10-49) U/L Alkaline Phosphatase 102 (46-116) U/L Troponin I < 0.002 < 0.020 (0.0-0.045) ng/mL B-Natriuretic Peptide 63 (0-100) pg/mL Total Protein 7.6 (5.7-8.2) gm/dL Albumin 5.0 H (3.4-4.8) gm/dL Globulin 2.6 (2.3-3.5) gm/dL Albumin/Globulin Ratio 1.9 (1.2-2.2) Discharge Plan Plan Patient Disposition: HOME (Self Care) Prescriptions/Referrals Prescriptions/Med Rec: No Action metformin 500 mg tablet 1 tab PO HS atorvastatin 10 mg tablet 1 tab PO HS lisinopril 10 mg tablet 1 tab PO HS Patient Comments: TAKE 1 TABLET BY MOUTH EVERY DAY Referrals: No Primary/Family,Physician [Referring Provider] - In 1 week Problem List Clinical Impression: Headache, Paresthesia, Generalized weakness Patient/Caregiver Discharge Instructions Education Materials: Self-Care for Headaches, ED Weakness (Uncertain Cause), ED Paraesthesias Print Language: [place]raini Stand Alone Forms: Pattie Award Info., Patient Portal Info Letter
[2024-06-07 19:32] LABS: Troponin I < 0.020 ng/mL (0.0-0.045)
--- NOTE | 2024-06-07 19:36 | XR_ITS ---
Examination: CTA carotids with intravenous contrast CTA brain, head with intravenous contrast. 2-D sagittal, coronal reconstructions. 3-D reconstructions. Exam date and time: June 07, 2024 2041 hrs. Indications: High blood pressure with headache today CTDI: vol (mGy) 31.43 DLP: (mGycm) 494 Technique: Multiple CTA axial brain, head carotid images post intravenous contrast injection 75 cc, Isovue-370. 2-D sagittal, coronal reconstructions. 3-D reconstructions, 3-D post processing including vascular maximum intensity projection images. Low dose protocols were performed. One or more of the following dose reduction techniques were used; automated exposure control, adjustment of the mA and/or KV according to patient size, use of iterative reconstruction technique. Findings: No significant common carotid carotid bifurcation or internal carotid artery stenoses Moderate calcification left carotid bifurcation Dominant right vertebral artery Bilateral thyroid nodules, the largest right thyroid 7 mm No cerebral large vessel arterial occlusions, thrombus, dissection or cerebral aneurysm Impression: No significant neck arterial stenoses No cerebral large vessel arterial occlusions, thrombus, dissection or cerebral aneurysm
--- NOTE | 2024-06-07 19:37 | XR_ITS ---
Examination: CT brain head without contrast. 2-D sagittal coronal reconstructions Date and time of exam:June 07, 2024 2039 hrs. Indications: High blood pressure with headache today Comparison: May 21, 2020 CTDI: vol (mGy):46.7 DLP: (mGycm):936 Technique: Multiple CT axial sections of the brain have been obtained, 5 mm slice thickness. Contrast has not been administered. 2-D sagittal, coronal reconstructions have been obtained Low dose protocols were performed. One or more of the following dose reduction techniques were used; automated exposure control, adjustment of the mA and/or KV according to patient size, use of iterative reconstruction technique. Findings: No significant ventricular enlargement. Intra-axial or extra-axial hemorrhage density is not seen. No mass effect or midline shift Basal cisterns are not remarkable. Fourth ventricle is midline. Cranial vault intact. Impression: Negative for acute hemorrhage, mass effect or midline shift
[2024-06-07] MEDS: hydrALAZINE INJ 20 MG/ML VIAL 10 MG IV (20:01)
== END 2024-06-07 22:43 | disposition home or self-care (01) ==
PROVIDERS: Physician Assistant; Emergency Provider Emergency Medicine; PCP Family Medicine
DX: R53.1 Weakness (principal); R51.9 Headache, unspecified; R20.2 Paresthesia of skin; I10 Essential (primary) hypertension; R94.31 Abnormal electrocardiogram [ECG] [EKG]
CPT/HCPCS: 36415; 70450; 70496; 70498; 71045; 80053; 83880; 84484; 85025; 93005; 99285; A4649; J0360; Q9967

== ENCOUNTER → 2024-06-25 | Outpatient (CLI) | payer OTHER, SELFPAY ==
[2024-06-25 17:01] LABS: Alanine Aminotransferase 18 U/L (10-49); Albumin, Serum 4.5 gm/dL (3.4-4.8); Alkaline Phosphatase 92 U/L (46-116); Aspartate Amino Transferase 16 U/L (0-34); Bilirubin,Direct 0.1 mg/dL (0.0-0.3); Bilirubin,Total 0.4 mg/dL (0.3-1.2)
== END | disposition home or self-care (01) ==
LOC: COPL 15:10
PROVIDERS: PCP Family Medicine; Referring Provider Surgery; Visit Provider Surgery
DX: C22.1 Intrahepatic bile duct carcinoma (principal)
CPT/HCPCS: 36415; 80076

== ENCOUNTER → 2024-06-27 | Outpatient (CLI) | payer OTHER, SELFPAY ==
--- NOTE | 2024-06-27 07:30 | XR_ITS ---
MRI abdomen, without contrast. MRCP Date and time of exam: June 27, 2024 0745 hrs. Indications: Post cholecystectomy June 04, 2024, upper right abdominal pain today, diagnosis intrahepatic bile duct carcinoma Technique: Multiple axial and coronal images of the abdomen have been obtained with the Siemens 1.5T MRI scanner. Images obtained included T1 weighted transverse images, T2-weighted transverse images, T2-weighted transverse images fat-suppressed, T2 weighted haste fat suppressed transverse images, T1 weighted images, in and out of phase images, T2-weighted coronal images, breath hold, T2 weighted haze coronal images as well as T2 weighted coronal thick slab images, MRCP. Findings: Intrahepatic biliary tract dilatation Common bile duct 8 mm Abrupt termination distal common bile duct Pancreatic duct is not dilated no pancreatic mass No ascites Spleen not enlarged No hydronephrosis Impression: Common bile duct 8 mm Abrupt termination of the distal common bile duct, consider malignant stricture, clinical correlation advised
== END | disposition home or self-care (01) ==
PROVIDERS: PCP Family Medicine; Referring Provider Surgery; Visit Provider Surgery
DX: R10.9 Unspecified abdominal pain (principal); C22.1 Intrahepatic bile duct carcinoma
CPT/HCPCS: S8037; 74181

== ENCOUNTER → 2024-08-11 | Outpatient (CLI) | payer OTHER, SELFPAY ==
[2024-08-11 08:33] LABS: Basophils # (Auto) 0.1 Thou/mm3 (0.0-0.2); Basophils % (Auto) 1 % (0-2.5); Eosinophils # (Auto) 0.2 Thou/mm3 (0.0-0.5); Eosinophils % (Auto) 3 % (0-10); Hematocrit 42.9 % (36.0-46.0); Hemoglobin 14.2 g/dL (12.0-16.0); Immature Granulocytes % (Auto) 0 % (0-0); Immature Granulocytes Auto 0.01 Thou/mm3 (0.00-0.00); Lymphocytes # (Auto) 2.9 Thou/mm3 (1.0-4.8); Lymphocytes % (Auto) 41 % (10-50); Mean Corpuscular HGB Conc 33.1 g/dl (31.0-37.0); Mean Corpuscular Hemoglobin 28.9 pg (25.0-35.0); Mean Corpuscular Volume 87 fL (80-100); Monocytes # (Auto) 0.4 Thou/mm3 (0.0-0.8); Monocytes % (Auto) 6 % (0-12); Neutrophils # (Auto) 3.5 Thou/mm3 (1.8-7.7); Neutrophils % (Auto) 50 % (37-80); Nucleated Red Blood Cell % 0 /100 WBC (0); Platelet Count 308 Thou/mm3 (140-440); RDW Standard Deviation 45.1 fL (36.4-46.3); Red Blood Count 4.92 Miln/mm3 (4.00-5.20); White Blood Count 7.1 Thou/mm3 (3.6-11.0)
[2024-08-11 08:44] LABS: Glucose Estimated Average 137 mg/dL (80-131); Hemoglobin A1C 6.4 % Hgb (4.8-6.0)
[2024-08-11 09:00] LABS: Alanine Aminotransferase 21 U/L (10-49); Albumin, Serum 4.5 gm/dL (3.4-4.8); Alkaline Phosphatase 106 U/L (46-116); Anion Gap 11 (7-16); Aspartate Amino Transferase 16 U/L (0-34); BUN/Creatinine Ratio 19 Ratio (12-20); Bilirubin,Total 0.5 mg/dL (0.3-1.2); Blood Urea Nitrogen 13 mg/dL (9-23); Calcium 10.2 mg/dL (8.3-10.6); Calcium (Corrected) 10.2 mg/dL (8.5-10.1); Carbon Dioxide 26.4 mMol/L (20.0-31.0); Chloride 105 mMol/L (98-107); Cholesterol 152 mg/dL (132-200); Creatinine (Component) 0.7 mg/dL (0.6-1.3); Globulin 2.3 gm/dL (2.3-3.5); Glucose 120 mg/dL (74-106); HDL Cholesterol 50 mg/dL (40-60); LDL Cholesterol,Calculated 60 mg/dL (0-130); Osmolality,Calculated 284 (275-295); Potassium 4.6 mMol/L (3.4-5.1); Sodium 142 mMol/L (136-145); Thyroid Stimulating Hormone 0.63 uIU/mL (0.55-4.78); Total Protein 6.8 gm/dL (5.7-8.2); Triglycerides 211 mg/dL (30-150); eGFR > 60 See Note
[2024-08-11 10:04] LABS: Creatinine MALB Rnd Ur 18 mg/dL (30-125); Microalbumin, Random Urine < 3 mg/L (0-300)
== END | disposition home or self-care (01) ==
LOC: COPL 07:52
PROVIDERS: PCP Family Medicine; Referring Provider Family Medicine; Visit Provider Family Medicine
DX: E11.65 Type 2 diabetes mellitus with hyperglycemia (principal)
CPT/HCPCS: 36415; 80053; 80061; 82043; 82570; 83036; 84443; 85025

== ENCOUNTER 2024-10-19 08:41 | Outpatient (RCR) | payer OTHER, SELFPAY ==
--- NOTE | 2024-10-19 11:25 | CTCCONSULT_ITS ---
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 She has completed one cycle of chemotherapy with OpvGyvcmzpn-Zfmpvcppu-Xezswlxcrd and is currently asymptomatic. The plan is to continue the chemotherapy regimen, perform a restaging scan after completion of 4 cycles, and obtain insurance approval for continued treatment. The patient understands her diagnosis and prognosis and wishes to continue chemotherapy. 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 She was initially seen for intermittent right upper quadrant pain, which led to a laparoscopic cholecystectomy on June 05, 2024. The pathology revealed poorly differentiated adenocarcinoma. Following the cholecystectomy, Ms. Linn underwent further diagnostic procedures, including an MRCP that showed acute narrowing of the distal common bile duct. A staging CT scan revealed a possible mass near the cystic duct clips. On September 07, 2024, she underwent an open procedure where masses were found in the gallbladder fossa, cystic duct and bile duct junction, liver, and retroperitoneum. Pathology confirmed metastatic disease in the liver and peritoneum. Ms. Linn has completed one cycle of chemotherapy with VgiDkrnisma-Iynzvplvd-Fynpmyetpb. She is seen today, October 19, 2024, for follow- up and reports being asymptomatic and doing very well. The patient understands her diagnosis of stage 4 cholangiocarcinoma and its poor prognosis but expresses a desire to continue chemotherapy. She has been adherent to her treatment plan thus far. Medical History - Type 2 diabetes mellitus, managed with metformin - Hypertension Surgical History - Open procedure on 09/07/2024 for removal of masses in gallbladder fossa, cystic duct and bile duct junction, liver, and retroperitoneum - Laparoscopic cholecystectomy on 06/05/2024 for gallbladder stones, resulting in diagnosis of poorly differentiated adenocarcinoma Medications and Supplements - Metformin - GemCytabine 1000 mg/m? on day 1 and day 8 - Cisplatin 25 mg/m? on day 1 and day 8 - Durvalumab 1500 mg on day 1 Review of Systems General: Negative for fever, chills, fatigue, muscle aches, appetite changes, or weight changes. Gastrointestinal: Negative for abdominal pain. OTHER MEDICAL HISTORY/CONDITIONS: Malignant cholangiocarcinoma - dx 06/05/24 HTN Hyperlipidemia Diabetes Laproscopic cholecystectomy 06/05/24 - Dr. 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 atorvastatin - 10 mg 1 tab Daily 2. Compazine - 10 mg 1 tab Every 6 Hours 3. lisinopril - 10 mg 1 tab Daily 4. metFORMIN - 500 mg 1 tab Daily 5. Miralax - 17 gram Daily 6. ondansetron - 8 mg 1 tab Every 8 Hours 7. senna - 8.6 mg 1 tab Daily?Palabra Meds? Medications Last Reconciled by Jordana Frausto RN on 10/19/2024 ALLERGIES: Iodine and Iodide Containing Products REVIEW OF SYSTEMS: A complete 14-point review of systems was performed and is negative except as noted in interval history. PHYSICAL EXAMINATION: VITAL SIGNS: Temperature?99.6, B/P?114/73, Height?61?inches, Oxygen?Saturation?99% Weight?138?lbs PAIN: 0 - No pain ECOG Performance Status: 1 - Symptomatic; ambulatory; restricted in strenuous activity GENERAL APPEARANCE: Appears well, in no apparent distress, appropriately interactive. HEENT: Normocephalic, no temporal wasting, normal conjunctiva, no scleral icterus, normal hearing, lips without lesions, neck normal range of motion. CARDIOVASCULAR: Not assessed. PULMONARY: Normal respiratory effort, no respiratory distress or use of accessory muscles, speaking in full sentences, no tachypnea. EXTREMITIES: No pedal edema or cyanosis. SKIN: Normal skin appearance. NEUROLOGIC: Alert and oriented x4. PSHYCHIATRIC: Appropriate affect, mood normal, behavior normal, intact thought and speech. LABORATORY DATA: I have personally reviewed and interpreted each of the patient?s relevant lab tests, abnormal findings are below: Laboratory, Imaging, and Diagnostic Test Results - PET-CT scan (10/02/2024): Showed metastatic extrahepatic cholangiocarcinoma. Worsening disease with enlarging and metabolically progressed tumor adjacent to cholecystectomy-clipse. New peritoneal carcinomatosis with liver capsular implants, peritoneal deposit, and possible malignant ascites. - MRI (09/22/2024): Common bile duct 8 mm. Abrupt termination of distal common bile duct, considered malignant stricture. - Pathology (06/05/2024): Gallbladder with stones, laparoscopic cholecystectomy. Malignant carcinoma consistent with poorly differentiated adenocarcinoma. - MRCP (date not specified): Acute narrowing of the distal common bile duct. - CT scan (date not specified): Possible mass near the cystic duct clips, no mass in the CBD, no evidence of macrometastatic disease. - Surgical pathology (09/07/2024): - Confirmed poorly differentiated carcinoma - Cystic duct biopsy: Intact expression of MLH1, MSH2, MSH6, PMS2. Positive for clonidine. 18.2 expression by ISC. HER2 negative. - Peritoneal liver biopsy: Poorly differentiated carcinoma. Date ASSESSMENT/PLAN: Shanon Linn, female patient with type 2 diabetes mellitus and hypertension, presents for follow-up of newly diagnosed stage 4 cholangiocarcinoma with metastases to liver and peritoneum. Stage 4 Cholangiocarcinoma Assessment: Ms. Linn was diagnosed with metastatic extrahepatic cholangiocarcinoma following a laparoscopic cholecystectomy on 06/05/2024, which revealed poorly differentiated adenocarcinoma. Subsequent imaging studies, including MRCP and PET-CT, confirmed the diagnosis and showed disease progressi on. On 09/07/2024, an open procedure revealed masses in the gallbladder fossa, cystic duct and bile duct junction, liver, and retroperitoneum. Pathology confirmed poorly differentiated carcinoma with metastases to the liver and peritoneum. Molecular studies showed intact expression of MLH1, MSH2, MSH6, PMS2, positive for clonidine, 18.2 expression by ISC, and HER2 negative. The patient has completed one cycle of chemotherapy with IqrXpdwzjib-Brspwmpsp-Kggalxzquy and is currently asymptomatic. Plan: - Continue chemotherapy regimen: GemCytabine 1000 mg/m? on days 1 and 8, Cisplatin 25 mg/m? 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 Plan: - Continue current management with metformin (dose not specified) Hypertension Assessment: Patient has a history of hypertension, Plan: - Continue current antihypertensive management (pcp) ORDERS: Order # Description [id number] + Comprehensive Metabolic Panel - 12 + CBC with Auto Diff [id number] Thyroid Stimulating Hormone + Assay Triiodothyronine (T3) RETURN TO CLINIC: 4 weeks I will see her back in the clinic in 4 weeks. BILLING AND COMPLIANCE: I reviewed external records from providers outside my specialty as summarized above. I spent a total of 50 minutes on this patient?s care on the day of their visit excluding time spent related to any billed procedures. This time includes time spent with the patient as well as time spent documenting in the medical record, reviewing patients records and tests, obtaining history, placing orders, communicating with other healthcare professionals, counseling the patient, family or caregiver, and/or care coordination for the diagnoses above. Electronically Signed by: Garcia Valerio MD T: 11:23 AM CC: PCP: Chinyere Erickson Referring: Garcia Valerio This document was completed utilizing speech recognition software. Grammatical errors, random word insertions, pronoun errors, and incomplete sentences are an occasional consequence of this system due to software limitations, ambient noise, and hardware issues. Any formal questions or concerns about the content, text or information contained within the body of this dictation should be directly addressed to the provider for clarification.
== END 2024-10-21 23:59 | disposition home or self-care (01) ==
LOC: SCTC 08:41
PROVIDERS: PCP Family Medicine; Referring Provider Internal Medicine Hematology & Oncology; Visit Provider Internal Medicine Hematology & Oncology
DX: C22.1 Intrahepatic bile duct carcinoma (principal); C78.6 Secondary malignant neoplasm of retroperitoneum and peritoneum; E11.9 Type 2 diabetes mellitus without complications; I10 Essential (primary) hypertension; Z90.49 Acquired absence of other specified parts of digestive tract; Z79.84 Long term (current) use of oral hypoglycemic drugs
CPT/HCPCS: 99213; G0463

== ENCOUNTER → 2024-11-10 | Outpatient (CLI) | payer OTHER, SELFPAY ==
[2024-11-10 10:42] LABS: Glucose Estimated Average 146 mg/dL (80-131); Hemoglobin A1C 6.7 % Hgb (4.8-6.0)
== END | disposition home or self-care (01) ==
LOC: COPL 08:53
PROVIDERS: PCP Family Medicine; Referring Provider Family Medicine; Visit Provider Family Medicine
DX: E11.65 Type 2 diabetes mellitus with hyperglycemia (principal)
CPT/HCPCS: 36415; 83036

== ENCOUNTER 2024-11-19 06:54 | Outpatient (RCR) | payer OTHER, SELFPAY ==
[2024-11-18 11:44] LABS: Basophils # (Auto) 0.1 Thou/mm3 (0.0-0.2); Basophils % (Auto) 1 % (0-2.5); Eosinophils # (Auto) 0.1 Thou/mm3 (0.0-0.5); Eosinophils % (Auto) 3 % (0-10); Hematocrit 33.2 % (36.0-46.0); Hemoglobin 11.5 g/dL (12.0-16.0); Immature Granulocytes % (Auto) 0 % (0-0); Immature Granulocytes Auto 0.02 Thou/mm3 (0.00-0.00); Lymphocytes # (Auto) 1.5 Thou/mm3 (1.0-4.8); Lymphocytes % (Auto) 29 % (10-50); Mean Corpuscular HGB Conc 34.6 g/dl (31.0-37.0); Mean Corpuscular Hemoglobin 29.8 pg (25.0-35.0); Mean Corpuscular Volume 86 fL (80-100); Monocytes # (Auto) 0.7 Thou/mm3 (0.0-0.8); Monocytes % (Auto) 13 % (0-12); Neutrophils # (Auto) 2.9 Thou/mm3 (1.8-7.7); Neutrophils % (Auto) 55 % (37-80); Nucleated Red Blood Cell % 0 /100 WBC (0); Platelet Count 307 Thou/mm3 (140-440); Red Blood Count 3.86 Miln/mm3 (4.00-5.20); White Blood Count 5.2 Thou/mm3 (3.6-11.0)
[2024-11-18 12:05] LABS: Alanine Aminotransferase 16 U/L (10-49); Albumin, Serum 4.3 gm/dL (3.4-4.8); Alkaline Phosphatase 80 U/L (46-116); Anion Gap 9 (7-16); Aspartate Amino Transferase 20 U/L (0-34); BUN/Creatinine Ratio 20 Ratio (12-20); Bilirubin,Total 0.3 mg/dL (0.3-1.2); Blood Urea Nitrogen 14 mg/dL (9-23); Calcium 9.1 mg/dL (8.3-10.6); Calcium (Corrected) 9.1 mg/dL (8.5-10.1); Carbon Dioxide 24.8 mMol/L (20.0-31.0); Chloride 104 mMol/L (98-107); Creatinine (Component) 0.7 mg/dL (0.6-1.3); Globulin 2.1 gm/dL (2.3-3.5); Glucose 105 mg/dL (74-106); Osmolality,Calculated 276 (275-295); Potassium 4.2 mMol/L (3.4-5.1); Sodium 138 mMol/L (136-145); Thyroid Stimulating Hormone 0.94 uIU/mL (0.55-4.78); Total Protein 6.4 gm/dL (5.7-8.2); eGFR > 60 See Note
[2024-11-19 07:53] LABS: Magnesium 1.8 mg/dL (1.6-2.6)
[2024-11-24 06:32] LABS: T3,Total* 123 ng/dL (76-181)
== END 2024-11-21 23:59 | disposition home or self-care (01) ==
LOC: SCTC 06:54
PROVIDERS: PCP Family Medicine; Referring Provider Family Medicine; Visit Provider Internal Medicine Hematology & Oncology
DX: Z51.11 Encounter for antineoplastic chemotherapy (principal); C22.1 Intrahepatic bile duct carcinoma; C78.6 Secondary malignant neoplasm of retroperitoneum and peritoneum; E11.9 Type 2 diabetes mellitus without complications; I10 Essential (primary) hypertension; Z79.84 Long term (current) use of oral hypoglycemic drugs; Z90.49 Acquired absence of other specified parts of digestive tract
CPT/HCPCS: 36591; 80053; 83735; 84443; 84480; 85025; 96366; 96367; 96368; 96375; 96413; 96417; A4216; J1100; J1200; J1453; J1642; J1938; J2150; J2405; J3475; J3480; J7040; J7050; J9060; J9173; J9201; J1940

== ENCOUNTER 2024-12-17 06:56 | Outpatient (RCR) | payer OTHER, SELFPAY ==
[2024-11-25 12:33] LABS: Basophils # (Auto) 0.1 Thou/mm3 (0.0-0.2); Basophils % (Auto) 2 % (0-2.5); Eosinophils # (Auto) 0.1 Thou/mm3 (0.0-0.5); Eosinophils % (Auto) 3 % (0-10); Hematocrit 33.2 % (36.0-46.0); Immature Granulocytes % (Auto) 0 % (0-0); Immature Granulocytes Auto 0.02 Thou/mm3 (0.00-0.00); Lymphocytes # (Auto) 2.4 Thou/mm3 (1.0-4.8); Lymphocytes % (Auto) 51 % (10-50); Mean Corpuscular HGB Conc 36.1 g/dl (31.0-37.0); Mean Corpuscular Hemoglobin 30.5 pg (25.0-35.0); Mean Corpuscular Volume 85 fL (80-100); Monocytes # (Auto) 0.3 Thou/mm3 (0.0-0.8); Monocytes % (Auto) 6 % (0-12); Neutrophils # (Auto) 1.8 Thou/mm3 (1.8-7.7); Neutrophils % (Auto) 38 % (37-80); Nucleated Red Blood Cell % 0 /100 WBC (0); Platelet Count 309 Thou/mm3 (140-440); RDW Standard Deviation 48.7 fL (36.4-46.3); Red Blood Count 3.93 Miln/mm3 (4.00-5.20); White Blood Count 4.7 Thou/mm3 (3.6-11.0)
[2024-11-25 13:07] LABS: Alanine Aminotransferase 15 U/L (10-49); Albumin, Serum 4.4 gm/dL (3.4-4.8); Alkaline Phosphatase 82 U/L (46-116); Anion Gap 16 (7-16); Aspartate Amino Transferase 16 U/L (0-34); BUN/Creatinine Ratio 19 Ratio (12-20); Bilirubin,Total 0.3 mg/dL (0.3-1.2); Blood Urea Nitrogen 13 mg/dL (9-23); Calcium 9.1 mg/dL (8.3-10.6); Calcium (Corrected) 9.1 mg/dL (8.5-10.1); Carbon Dioxide 21.3 mMol/L (20.0-31.0); Chloride 95 mMol/L (98-107); Creatinine (Component) 0.7 mg/dL (0.6-1.3); Free T3 3.1 pg/mL (2.3-4.2); Globulin 2.2 gm/dL (2.3-3.5); Glucose 111 mg/dL (74-106); Osmolality,Calculated 265 (275-295); Potassium 4.5 mMol/L (3.4-5.1); Sodium 132 mMol/L (136-145); Thyroid Stimulating Hormone 0.97 uIU/mL (0.55-4.78); Total Protein 6.6 gm/dL (5.7-8.2); eGFR > 60 See Note
[2024-11-26 08:26] LABS: Magnesium 1.6 mg/dL (1.6-2.6)
--- NOTE | 2024-12-07 00:09 | CTCFLWUP_ITS ---
Patient: SHANON LINN : 1955 Page 3 of 5 FOLLOW UP NOTE DATE OF SERVICE: 12/01/2024 NAME: SHANON LINN ACCOUNT: [id number] : 1955 AGE: 69 INTERVAL HISTORY: Since last visit patient was upset and requesting to keep same treatment at [facility]. Patient advised that she is getting the same regimen. Pre- Premedications for chemoimmunotherapy also need to be adjusted according to patient. Patient is worried and would like to continue at [facility] once she is able to travel. ONCOLOGY HISTORY:?Clone[facility] Oncology Hx? DIAGNOSIS: Intrahepatic bile duct carcinoma [ICD10] C22.1 DATE OF DIAGNOSIS: 07 September 2024 STAGE/TNM: IV T4 N1 M1 TREATMENT HISTORY: Care?Plan Start?Date Cycle Day Intent Durvalumab,?cisplatin?and?gemcitabine?cholangiocarcinoma?regimen?1 11/19/2024 1 21 Palliative HISTORY OF PRESENT ILLNESS: Chief Complaint Follow-up for stage 4 cholangiocarcinoma, asymptomatic History of Present Illness Shanon Linn, a patient with type 2 diabetes mellitus and hypertension, presents for follow-up of newly diagnosed stage 4 cholangiocarcinoma. She was initially seen for intermittent right upper quadrant pain, which led to a laparoscopic cholecystectomy on June 05, 2024. The pathology revealed poorly differentiated adenocarcinoma. Following the cholecystectomy, Ms. Linn underwent further diagnostic procedures, including an MRCP that showed acute narrowing of the distal common bile duct. A staging CT scan revealed a possible mass near the cystic duct clips. On September 07, 2024, she underwent an open procedure where masses were found in the gallbladder fossa, cystic duct and bile duct junction, liver, and retroperitoneum. Pathology confirmed metastatic disease in the liver and peritoneum. Ms. Linn has completed one cycle of chemotherapy with SiyTrbulvmh-Omrkcrfrj-Gwthjyquxu. She is seen today, October 19, 2024, for follow- up and reports being asymptomatic and doing very well. The patient understands her diagnosis of stage 4 cholangiocarcinoma and its poor prognosis but expresses a desire to continue chemotherapy. She has been adherent to her treatment plan thus far. Medical History - Type 2 diabetes mellitus, managed with metformin - Hypertension Surgical History - Open procedure on 09/07/2024 for removal of masses in gallbladder fossa, cystic duct and bile duct junction, liver, and retroperitoneum - Laparoscopic cholecystectomy on 06/05/2024 for gallbladder stones, resulting in diagnosis of poorly differentiated adenocarcinoma Medications and Supplements - Metformin - GemCytabine 1000 mg/m? on day 1 and day 8 - Cisplatin 25 mg/m? on day 1 and day 8 - Durvalumab 1500 mg on day 1 Review of Systems General: Negative for fever, chills, fatigue, muscle aches, appetite changes, or weight changes. Gastrointestinal: Negative for abdominal pain. OTHER MEDICAL HISTORY/CONDITIONS: Malignant cholangiocarcinoma - dx 06/05/24 HTN Hyperlipidemia Diabetes Laproscopic cholecystectomy 06/05/24 - Dr. 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 atorvastatin - 10 mg 1 tab Daily 2. Compazine - 10 mg 1 tab Every 6 Hours 3. lisinopril - 10 mg 1 tab Daily 4. metFORMIN - 500 mg 1 tab Daily 5. Miralax - 17 gram Daily 6. ondansetron - 8 mg 1 tab Every 8 Hours 7. senna - 8.6 mg 1 tab Daily?Palabra Meds? Medications Last Reconciled by Jordana Frausto RN on 10/19/2024 ALLERGIES: Iodine and Iodide Containing Products REVIEW OF SYSTEMS: A complete 14-point review of systems was performed and is negative except as noted in interval history. PHYSICAL EXAMINATION:?CloneBlock PE? VITAL SIGNS: B/P?140/83, Oxygen?Saturation?97% Weight?139?lbs (Change?since?11/26/24:?1.2?lbs) ECOG Performance Status: 0 - Asymptomatic and fully active GENERAL APPEARANCE: Appears well, in no apparent distress, appropriately interactive. HEENT: Normocephalic, no temporal wasting, normal conjunctiva, no scleral icterus, normal hearing, lips without lesions, neck normal range of motion. CARDIOVASCULAR: Not assessed. PULMONARY: Normal respiratory effort, no respiratory distress or use of accessory muscles, speaking in full sentences, no tachypnea. EXTREMITIES: No pedal edema or cyanosis. SKIN: Normal skin appearance. NEUROLOGIC: Alert and oriented x4. PSHYCHIATRIC: Appropriate affect, mood normal, behavior normal, intact thought and speech. LABORATORY DATA: I have personally reviewed and interpreted each of the patient?s relevant lab tests, abnormal findings are below: Date 11/19/24 11/25/24 11/26/24 ??WHITE?BLOOD?COUNT?(Thou/mm3) ? 4.7 ? ??RED?BLOOD?COUNT?(Miln/mm3) ? 3.93?L ? ??HEMOGLOBIN?(gm/dl) ? 12.0 ? ??HEMATOCRIT?(%) ? 33.2?L ? ??PLATELET?COUNT?(Thou/mm3) ? 309 ? ??NEUTROPHILS?%,?AUTO?(%) ? 38 ? ??LYMPH?%,?AUTO?(%) ? 51?H ? ??NEUTROPHILS,?AUTO?(Thou/mm3) ? 1.8 ? ??GLUCOSE,RANDOM?(mg/dL) ? 111?H ? ??BLOOD?UREA?NITROGEN?(mg/dL) ? 13 ? ??CREATININE?(mg/dL) ? 0.70 ? ??SODIUM?(mmol/L) ? 132?L ? ??POTASSIUM?(mmol/L) ? 4.5 ? ??CHLORIDE?(mmol/L) ? 95?L ? ??CrCl?(CandG)?(ml/min) ? 73.16 ? ??AST/SGOT?(Unit/L) ? 16 ? ??ALT/SGPT?(Unit/L) ? 15 ? ??ALKALINE?PHOSPHATASE?(Unit/L) ? 82 ? ??BILIRUBIN,?TOTAL?(mg/dL) ? 0.3 ? ??PROTEIN?TOTAL?(gm/dl) ? 6.6 ? ??ALBUMIN,?SERUM?(gm/dl) ? 4.4 ? ??GLOBULIN?(gm/dl) ? 2.2?L ? ??ALBUMIN/GLOBULIN?RATIO ? 2.0 ? ??CALCIUM,?SERUM?(mg/dL) ? 9.1 ? ??CALCIUM?SERUM?(CORRECTED)?(mg/dL) ? 9.1 ? ??MAGNESIUM?(mg/dL) 1.8 ? 1.6 ASSESSMENT/PLAN:?Sia Valerio Assessment/Plan? Shanon Linn, female patient with type 2 diabetes mellitus and hypertension, presents for follow-up of newly diagnosed stage 4 cholangiocarcinoma with metastases to liver and peritoneum. Stage 4 Cholangiocarcinoma Assessment: Ms. Linn was diagnosed with metastatic extrahepatic cholangiocarcinoma following a laparoscopic cholecystectomy on 06/05/2024, which revealed poorly differentiated adenocarcinoma. Subsequent imaging studies, including MRCP and PET-CT, confirmed the diagnosis and showed disease progressi on. On 09/07/2024, an open procedure revealed masses in the gallbladder fossa, cystic duct and bile duct junction, liver, and retroperitoneum. Pathology confirmed poorly differentiated carcinoma with metastases to the liver and peritoneum. Molecular studies showed intact expression of MLH1, MSH2, MSH6, PMS2, positive for clonidine, 18.2 expression by ISC, and HER2 negative. The patient has completed one cycle of chemotherapy with SezBndntgws-Hzfirtcpb-Ubdlvfmoru and is currently asymptomatic. Plan: - Continue chemotherapy regimen: GemCytabine 1000 mg/m? on days 1 and 8, Cisplatin 25 mg/m? 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 Plan: - Continue current management with metformin (dose not specified) Hypertension Assessment: Patient has a history of hypertension, Plan: - Continue current antihypertensive management (pcp) ORDERS: Order # Description [id number] Comprehensive Metabolic Panel - 12 + CBC with Auto Diff [id number] CEA [id number] CA [id number] Follow Up 4 Week RETURN TO CLINIC: 4 weeks BILLING AND COMPLIANCE: I reviewed external records from providers outside my specialty as summarized above. I spent a total of 50 minutes on this patient?s care on the day of their visit excluding time spent related to any billed procedures. This time includes time spent with the patient as well as time spent documenting in the medical record, reviewing patients records and tests, obtaining history, placing orders, communicating with other healthcare professionals, counseling the patient, family or caregiver, and/or care coordination for the diagnoses above. Electronically Signed by: Garcia Valerio MD T: 12:07 AM CC: PCP: Chinyere Erickson Referring: Chinyere Erickson This document was completed utilizing speech recognition software. Grammatical errors, random word insertions, pronoun errors, and incomplete sentences are an occasional consequence of this system due to software limitations, ambient noise, and hardware issues. Any formal questions or concerns about the content, text or information contained within the body of this dictation should be directly addressed to the provider for clarification.
[2024-12-09 11:59] LABS: Basophils % (Auto) 1 % (0-2.5); Eosinophils # (Auto) 0.2 Thou/mm3 (0.0-0.5); Eosinophils % (Auto) 3 % (0-10); Hematocrit 30.3 % (36.0-46.0); Hemoglobin 10.6 g/dL (12.0-16.0); Immature Granulocytes % (Auto) 0 % (0-0); Immature Granulocytes Auto 0.01 Thou/mm3 (0.00-0.00); Lymphocytes % (Auto) 39 % (10-50); Mean Corpuscular Hemoglobin 30.7 pg (25.0-35.0); Mean Corpuscular Volume 88 fL (80-100); Monocytes # (Auto) 0.5 Thou/mm3 (0.0-0.8); Monocytes % (Auto) 10 % (0-12); Neutrophils # (Auto) 2.5 Thou/mm3 (1.8-7.7); Neutrophils % (Auto) 48 % (37-80); Nucleated Red Blood Cell % 0 /100 WBC (0); Platelet Count 294 Thou/mm3 (140-440); RDW Standard Deviation 54.5 fL (36.4-46.3); Red Blood Count 3.45 Miln/mm3 (4.00-5.20); White Blood Count 5.2 Thou/mm3 (3.6-11.0)
[2024-12-09 12:25] LABS: Magnesium 1.7 mg/dL (1.6-2.6)
[2024-12-09 12:28] LABS: Carcinoembryonic Antigen < 0.5 ng/mL (0.0-5.0); Free T3 2.6 pg/mL (2.3-4.2)
[2024-12-09 12:29] LABS: Alanine Aminotransferase 14 U/L (10-49); Alkaline Phosphatase 79 U/L (46-116); Anion Gap 8 (7-16); Aspartate Amino Transferase 17 U/L (0-34); BUN/Creatinine Ratio 20 Ratio (12-20); Bilirubin,Total 0.3 mg/dL (0.3-1.2); Blood Urea Nitrogen 14 mg/dL (9-23); Calcium 8.8 mg/dL (8.3-10.6); Calcium (Corrected) 8.8 mg/dL (8.5-10.1); Carbon Dioxide 25.2 mMol/L (20.0-31.0); Chloride 104 mMol/L (98-107); Creatinine (Component) 0.7 mg/dL (0.6-1.3); Glucose 158 mg/dL (74-106); Osmolality,Calculated 277 (275-295); Sodium 137 mMol/L (136-145); Thyroid Stimulating Hormone 0.55 uIU/mL (0.55-4.78); eGFR > 60 See Note
[2024-12-16 06:44] LABS: CA 19-9 Antigen* 21 U/mL (<34)
[2024-12-16 11:14] LABS: Basophils # (Auto) 0.1 Thou/mm3 (0.0-0.2); Basophils % (Auto) 2 % (0-2.5); Eosinophils # (Auto) 0.1 Thou/mm3 (0.0-0.5); Eosinophils % (Auto) 3 % (0-10); Hematocrit 31.5 % (36.0-46.0); Hemoglobin 11.3 g/dL (12.0-16.0); Immature Granulocytes % (Auto) 1 % (0-0); Immature Granulocytes Auto 0.04 Thou/mm3 (0.00-0.00); Lymphocytes # (Auto) 2.6 Thou/mm3 (1.0-4.8); Lymphocytes % (Auto) 64 % (10-50); Mean Corpuscular HGB Conc 35.9 g/dl (31.0-37.0); Mean Corpuscular Volume 86 fL (80-100); Monocytes # (Auto) 0.3 Thou/mm3 (0.0-0.8); Monocytes % (Auto) 8 % (0-12); Neutrophils # (Auto) 0.9 Thou/mm3 (1.8-7.7); Neutrophils % (Auto) 22 % (37-80); Nucleated Red Blood Cell % 0 /100 WBC (0); Platelet Count 467 Thou/mm3 (140-440); Red Blood Count 3.65 Miln/mm3 (4.00-5.20); White Blood Count 4.1 Thou/mm3 (3.6-11.0)
[2024-12-16 11:37] LABS: Magnesium 1.8 mg/dL (1.6-2.6)
[2024-12-16 11:40] LABS: Free T3 2.9 pg/mL (2.3-4.2)
[2024-12-16 11:41] LABS: Alanine Aminotransferase 14 U/L (10-49); Albumin, Serum 4.4 gm/dL (3.4-4.8); Alkaline Phosphatase 82 U/L (46-116); Anion Gap 10 (7-16); Aspartate Amino Transferase 18 U/L (0-34); BUN/Creatinine Ratio 16 Ratio (12-20); Bilirubin,Total 0.3 mg/dL (0.3-1.2); Blood Urea Nitrogen 13 mg/dL (9-23); Calcium 9.7 mg/dL (8.3-10.6); Calcium (Corrected) 9.7 mg/dL (8.5-10.1); Carbon Dioxide 24.4 mMol/L (20.0-31.0); Chloride 100 mMol/L (98-107); Creatinine (Component) 0.8 mg/dL (0.6-1.3); Globulin 2.2 gm/dL (2.3-3.5); Glucose 111 mg/dL (74-106); Osmolality,Calculated 269 (275-295); Potassium 4.2 mMol/L (3.4-5.1); Sodium 134 mMol/L (136-145); Thyroid Stimulating Hormone 0.96 uIU/mL (0.55-4.78); Total Protein 6.6 gm/dL (5.7-8.2); eGFR > 60 See Note
[2024-12-17 07:35] LABS: Basophils # (Auto) 0.1 Thou/mm3 (0.0-0.2); Basophils % (Auto) 2 % (0-2.5); Eosinophils # (Auto) 0.1 Thou/mm3 (0.0-0.5); Eosinophils % (Auto) 2 % (0-10); Hematocrit 31.1 % (36.0-46.0); Hemoglobin 11.3 g/dL (12.0-16.0); Immature Granulocytes % (Auto) 1 % (0-0); Immature Granulocytes Auto 0.05 Thou/mm3 (0.00-0.00); Lymphocytes # (Auto) 1.9 Thou/mm3 (1.0-4.8); Lymphocytes % (Auto) 50 % (10-50); Mean Corpuscular HGB Conc 36.3 g/dl (31.0-37.0); Mean Corpuscular Hemoglobin 31.2 pg (25.0-35.0); Mean Corpuscular Volume 86 fL (80-100); Monocytes # (Auto) 0.4 Thou/mm3 (0.0-0.8); Monocytes % (Auto) 11 % (0-12); Neutrophils # (Auto) 1.3 Thou/mm3 (1.8-7.7); Neutrophils % (Auto) 34 % (37-80); Nucleated Red Blood Cell % 0 /100 WBC (0); Platelet Count 387 Thou/mm3 (140-440); RDW Standard Deviation 54.4 fL (36.4-46.3); Red Blood Count 3.62 Miln/mm3 (4.00-5.20); White Blood Count 3.8 Thou/mm3 (3.6-11.0)
== END 2024-12-21 23:59 | disposition home or self-care (01) ==
LOC: SCTC 06:56
PROVIDERS: PCP Family Medicine; Referring Provider Family Medicine; Visit Provider Internal Medicine Hematology & Oncology
DX: Z51.11 Encounter for antineoplastic chemotherapy (principal); C22.1 Intrahepatic bile duct carcinoma; C78.6 Secondary malignant neoplasm of retroperitoneum and peritoneum; I10 Essential (primary) hypertension; E11.9 Type 2 diabetes mellitus without complications; Z79.84 Long term (current) use of oral hypoglycemic drugs
CPT/HCPCS: 36591; 80053; 82378; 83735; 84443; 84481; 85025; 86301; 96367; 96368; 96375; 96376; 96413; 96417; A4216; J1100; J1200; J1453; J1642; J1938; J2150; J2405; J2469; J3475; J3480; J7040; J7050; J9060; J9173; J9201; J1940

== ENCOUNTER → 2025-01-01 | Outpatient (CLI) | payer OTHER, SELFPAY ==
--- NOTE | 2025-01-01 10:15 | XR_ITS ---
Examination: Screening digital mammography, bilateral Computer aided detection 3-D breast Tomosynthesis, bilateral Date and time of exam: January 01, 2025 at 0955 hours Compared to mammograms dating to February 20, 2021 Indication: Screening Technique: Nonmagnified MLO, CC views of the breasts to been obtained, reconstructed from 3-D Tomosynthesis images. R2 computer aided detection program utilized for evaluation of suspicious masses and/or abnormal calcifications. 3-D Tomosynthesis images obtained. Findings: Scattered areas of fibroglandular density. Benign calcifications. No interval suspicious masses Impression: BI-RADS category II: Benign Findings. Recommend 1 year follow-up mammogram.
== END | disposition home or self-care (01) ==
LOC: CDIM 09:46
PROVIDERS: Referring Provider Family Medicine; Visit Provider Family Medicine
DX: Z12.31 Encounter for screening mammogram for malignant neoplasm of breast (principal); R92.323 Mammographic fibroglandular density, bilateral breasts; R92.1 Mammographic calcification found on diagnostic imaging of breast
CPT/HCPCS: 77063; 77067

== ENCOUNTER 2025-01-21 07:13 | Outpatient (RCR) | payer OTHER, SELFPAY ==
[2024-12-30 09:31] LABS: Basophils # (Auto) 0.0 Thou/mm3 (0.0-0.2); Basophils % (Auto) 1 % (0-2.5); Eosinophils # (Auto) 0.1 Thou/mm3 (0.0-0.5); Eosinophils % (Auto) 1 % (0-10); Hematocrit 31.9 % (36.0-46.0); Hemoglobin 11.0 g/dL (12.0-16.0); Immature Granulocytes Auto 0.03 Thou/mm3 (0.00-0.00); Lymphocytes # (Auto) 1.7 Thou/mm3 (1.0-4.8); Lymphocytes % (Auto) 39 % (10-50); Mean Corpuscular HGB Conc 34.5 g/dl (31.0-37.0); Mean Corpuscular Hemoglobin 30.9 pg (25.0-35.0); Mean Corpuscular Volume 90 fL (80-100); Monocytes # (Auto) 0.5 Thou/mm3 (0.0-0.8); Monocytes % (Auto) 11 % (0-12); Neutrophils # (Auto) 2.1 Thou/mm3 (1.8-7.7); Neutrophils % (Auto) 47 % (37-80); Nucleated Red Blood Cell # 0.00 Thou/mm3 (0.00-0.00); Nucleated Red Blood Cell % 0 /100 WBC (0); Platelet Count 193 Thou/mm3 (140-440); RDW Standard Deviation 59.3 fL (36.4-46.3); Red Blood Count 3.56 Miln/mm3 (4.00-5.20); White Blood Count 4.4 Thou/mm3 (3.6-11.0)
[2024-12-30 09:46] LABS: Free T3 2.9 pg/mL (2.3-4.2)
[2024-12-30 09:48] LABS: Magnesium 1.6 mg/dL (1.6-2.6)
[2024-12-30 09:51] LABS: Alanine Aminotransferase 14 U/L (10-49); Albumin, Serum 4.2 gm/dL (3.4-4.8); Albumin/Globulin Ratio 1.9 (1.2-2.2); Alkaline Phosphatase 98 U/L (46-116); Anion Gap 13 (7-16); Aspartate Amino Transferase 17 U/L (0-34); BUN/Creatinine Ratio 15 Ratio (12-20); Bilirubin,Total 0.4 mg/dL (0.3-1.2); Blood Urea Nitrogen 12 mg/dL (9-23); Calcium 9.1 mg/dL (8.3-10.6); Calcium (Corrected) 9.1 mg/dL (8.5-10.1); Carbon Dioxide 24.2 mMol/L (20.0-31.0); Chloride 104 mMol/L (98-107); Creatinine (Component) 0.8 mg/dL (0.6-1.3); Globulin 2.2 gm/dL (2.3-3.5); Glucose 209 mg/dL (74-106); Osmolality,Calculated 286 (275-295); Potassium 4.2 mMol/L (3.4-5.1); Sodium 141 mMol/L (136-145); Thyroid Stimulating Hormone 1.17 uIU/mL (0.55-4.78); Total Protein 6.4 gm/dL (5.7-8.2); eGFR > 60 See Note
[2025-01-06 12:50] LABS: Basophils # (Auto) 0.1 Thou/mm3 (0.0-0.2); Basophils % (Auto) 1 % (0-2.5); Eosinophils # (Auto) 0.1 Thou/mm3 (0.0-0.5); Eosinophils % (Auto) 2 % (0-10); Hematocrit 30.4 % (36.0-46.0); Hemoglobin 10.7 g/dL (12.0-16.0); Immature Granulocytes Auto 0.01 Thou/mm3 (0.00-0.00); Lymphocytes # (Auto) 1.9 Thou/mm3 (1.0-4.8); Lymphocytes % (Auto) 47 % (10-50); Mean Corpuscular HGB Conc 35.2 g/dl (31.0-37.0); Mean Corpuscular Hemoglobin 31.6 pg (25.0-35.0); Mean Corpuscular Volume 90 fL (80-100); Monocytes # (Auto) 0.2 Thou/mm3 (0.0-0.8); Monocytes % (Auto) 5 % (0-12); Neutrophils # (Auto) 1.8 Thou/mm3 (1.8-7.7); Neutrophils % (Auto) 45 % (37-80); Nucleated Red Blood Cell # 0.00 Thou/mm3 (0.00-0.00); Nucleated Red Blood Cell % 0 /100 WBC (0); Platelet Count 366 Thou/mm3 (140-440); RDW Standard Deviation 58.3 fL (36.4-46.3); Red Blood Count 3.39 Miln/mm3 (4.00-5.20); White Blood Count 4.1 Thou/mm3 (3.6-11.0)
[2025-01-06 13:06] LABS: Magnesium 1.4 mg/dL (1.6-2.6)
[2025-01-06 13:08] LABS: Alanine Aminotransferase 12 U/L (10-49); Albumin, Serum 4.2 gm/dL (3.4-4.8); Albumin/Globulin Ratio 2.0 (1.2-2.2); Alkaline Phosphatase 84 U/L (46-116); Anion Gap 11 (7-16); Aspartate Amino Transferase 16 U/L (0-34); BUN/Creatinine Ratio 17 Ratio (12-20); Bilirubin,Total 0.3 mg/dL (0.3-1.2); Blood Urea Nitrogen 15 mg/dL (9-23); Calcium 9.3 mg/dL (8.3-10.6); Calcium (Corrected) 9.3 mg/dL (8.5-10.1); Carbon Dioxide 25.7 mMol/L (20.0-31.0); Chloride 101 mMol/L (98-107); Creatinine (Component) 0.9 mg/dL (0.6-1.3); Free T4 (Free Thyroxine) 1.17 ng/dL (0.89-1.76); Globulin 2.1 gm/dL (2.3-3.5); Glucose 107 mg/dL (74-106); Osmolality,Calculated 276 (275-295); Potassium 4.1 mMol/L (3.4-5.1); Sodium 138 mMol/L (136-145); Total Protein 6.3 gm/dL (5.7-8.2); eGFR > 60 See Note
--- NOTE | 2025-01-14 12:41 | CTCFLWUP_ITS ---
Patient: SHANON LINN : 1955 Page 3 of 5 FOLLOW UP NOTE DATE OF SERVICE: 01/14/2025 NAME: SHANON LINN ACCOUNT: [id number] : 1955 AGE: 69 INTERVAL HISTORY: Since last visit patient is doing well. She has completed PET CT scan at [facility]. Results were discussed with her by her oncologist at [facility] and told her that her cancer has been responding to chemotherapy. 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 She was initially seen for intermittent right upper quadrant pain, which led to a laparoscopic cholecystectomy on June 05, 2024. The pathology revealed poorly differentiated adenocarcinoma. Following the cholecystectomy, Ms. Linn underwent further diagnostic procedures, including an MRCP that showed acute narrowing of the distal common bile duct. A staging CT scan revealed a possible mass near the cystic duct clips. On September 07, 2024, she underwent an open procedure where masses were found in the gallbladder fossa, cystic duct and bile duct junction, liver, and retroperitoneum. Pathology confirmed metastatic disease in the liver and peritoneum. Ms. Linn has completed one cycle of chemotherapy with EcjVrlfxuqk-Uwohlfygv-Hnizuaxefb. She is seen today, October 19, 2024, for follow- up and reports being asymptomatic and doing very well. The patient understands her diagnosis of stage 4 cholangiocarcinoma and its poor prognosis but expresses a desire to continue chemotherapy. She has been adherent to her treatment plan thus far. PET CT scan is showing decrease in size of lymph node as well as peritoneal mets Medical History - Type 2 diabetes mellitus, managed with metformin - Hypertension Surgical History - Open procedure on 09/07/2024 for removal of masses in gallbladder fossa, cystic duct and bile duct junction, liver, and retroperitoneum - Laparoscopic cholecystectomy on 06/05/2024 for gallbladder stones, resulting in diagnosis of poorly differentiated adenocarcinoma Medications and Supplements - Metformin - GemCytabine 1000 mg/m? on day 1 and day 8 - Cisplatin 25 mg/m? on day 1 and day 8 - Durvalumab 1500 mg on day 1 Review of Systems General: Negative for fever, chills, fatigue, muscle aches, appetite changes, or weight changes. Gastrointestinal: Negative for abdominal pain. OTHER MEDICAL HISTORY/CONDITIONS: Malignant cholangiocarcinoma - dx 06/05/24 HTN Hyperlipidemia Diabetes Laproscopic cholecystectomy 06/05/24 - Dr. 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 Tobacco?Use:?Denies ETOH?Use:?Denies Drug?Note:?Denies Social History Note:?Lives alone - in SNF [employer] HISTORY: Menarche?-?Age:?10 Menopause:?50 :?6 Live?Births:?6 Age?1st?:?14 MEDICATIONS: 1. atorvastatin - 10 mg 1 tab Daily 2. Compazine - 10 mg 1 tab Every 6 Hours 3. lisinopril - 10 mg 1 tab Daily 4. magnesium oxide - 400 mg (241.3 mg magnesium) 1 tab Daily 5. metFORMIN - 500 mg 1 tab Daily 6. ondansetron - 8 mg 1 tab Every 8 Hours Medications Last Reconciled by Chinyere Flowers MA on 01/14/2025 ALLERGIES: Iodine and Iodide Containing Products REVIEW OF SYSTEMS: A complete 14-point review of systems was performed and is negative except as noted in interval history. PHYSICAL EXAMINATION: VITAL SIGNS: Temperature?99.2, B/P?125/82, Oxygen?Saturation?96% Weight?146?lbs (Change?since?01/07/25:?2.6?lbs) PAIN: 0 - No pain ECOG Performance Status: 1 - Symptomatic; ambulatory; restricted in strenuous activity GENERAL APPEARANCE: Appears well, in no apparent distress, appropriately interactive. HEENT: Normocephalic, no temporal wasting, normal conjunctiva, no scleral icterus, normal hearing, lips without lesions, neck normal range of motion. CARDIOVASCULAR: Not assessed. PULMONARY: Normal respiratory effort, no respiratory distress or use of accessory muscles, speaking in full sentences, no tachypnea. EXTREMITIES: No pedal edema or cyanosis. SKIN: Normal skin appearance. NEUROLOGIC: Alert and oriented x4. PSHYCHIATRIC: Appropriate affect, mood normal, behavior normal, intact thought and speech. LABORATORY DATA: I have personally reviewed and interpreted each of the patient?s relevant lab tests, abnormal findings are below: Date 12/30/24 01/06/25 ??WHITE?BLOOD?COUNT?(Thou/mm3) 4.4 4.1 ??RED?BLOOD?COUNT?(Miln/mm3) 3.56?L 3.39?L ??HEMOGLOBIN?(gm/dl) 11.0?L 10.7?L ??HEMATOCRIT?(%) 31.9?L 30.4?L ??PLATELET?COUNT?(Thou/mm3) 193 366 ??NEUTROPHILS?%,?AUTO?(%) 47 45 ??LYMPH?%,?AUTO?(%) 39 47 ??NEUTROPHILS,?AUTO?(Thou/mm3) 2.1 1.8 ??GLUCOSE,RANDOM?(mg/dL) ? 107?H ??BLOOD?UREA?NITROGEN?(mg/dL) ? 15 ??CREATININE?(mg/dL) ? 0.90 ??SODIUM?(mmol/L) ? 138 ??POTASSIUM?(mmol/L) ? 4.1 ??CHLORIDE?(mmol/L) ? 101 ??CrCl?(CandG)?(ml/min) ? 58.87 ??AST/SGOT?(Unit/L) ? 16 ??ALT/SGPT?(Unit/L) ? 12 ??ALKALINE?PHOSPHATASE?(Unit/L) ? 84 ??BILIRUBIN,?TOTAL?(mg/dL) ? 0.3 ??PROTEIN?TOTAL?(gm/dl) ? 6.3 ??ALBUMIN,?SERUM?(gm/dl) ? 4.2 ??GLOBULIN?(gm/dl) ? 2.1?L ??ALBUMIN/GLOBULIN?RATIO ? 2.0 ??CALCIUM,?SERUM?(mg/dL) ? 9.3 ??CALCIUM?SERUM?(CORRECTED)?(mg/dL) ? 9.3 ??MAGNESIUM?(mg/dL) ? 1.4?L ASSESSMENT/PLAN: hSanon Linn, female patient with type 2 diabetes mellitus and hypertension, presents for follow-up of newly diagnosed stage 4 cholangiocarcinoma with metastases to liver and peritoneum. Stage 4 Cholangiocarcinoma Assessment: Ms. Linn was diagnosed with metastatic extrahepatic cholangiocarcinoma following a laparoscopic cholecystectomy on 06/05/2024, which revealed poorly differentiated adenocarcinoma. Subsequent imaging studies, including MRCP and PET-CT, confirmed the diagnosis and showed disease progressi on. On 09/07/2024, an open procedure revealed masses in the gallbladder fossa, cystic duct and bile duct junction, liver, and retroperitoneum. Pathology confirmed poorly differentiated carcinoma with metastases to the liver and peritoneum. Molecular studies showed intact expression of MLH1, MSH2, MSH6, PMS2, positive for clonidine, 18.2 expression by ISC, and HER2 negative. The patient has completed one cycle of chemotherapy with JdaSrbdysjp-Gdhliwvfb-Xwcvxlargp and is currently asymptomatic. Plan: - Continue chemotherapy regimen: GemCytabine 1000 mg/m? on days 1 and 8, Cisplatin 25 mg/m? on days 1 and 8, Durvalumab 1500 mg on day 1 Patient completed 3 cycles so far and PET CT scan shows good response to treatment Continue current therapy Return after cycle 7 Scheduled for another PET CT scan in February Type 2 Diabetes Mellitus Assessment: Patient has a history of type 2 diabetes mellitus, currently managed with metformin. Plan: - Continue current management with metformin (dose not specified) Hypertension Assessment: Patient has a history of hypertension, Plan: - Continue current antihypertensive management (pcp) ORDERS: Order # Description [id number] + CA 19-9 RETURN TO CLINIC: I reviewed the diagnosis, prognosis, and recommended treatment/procedure options with the patient (and/or their legal insurance verification representative), including the potential benefits, risks, side effects and alternative therapies. We also discussed the option of no treatment and the possibility of clinical trial participation, if applicable. All questions were addressed, and they demonstrated understanding. They provided informed consent to proceed with the proposed plan of care. BILLING AND COMPLIANCE: I reviewed external records from providers outside my specialty as summarized above. I spent a total of 50 minutes on this patient?s care on the day of their visit excluding time spent related to any billed procedures. This time includes time spent with the patient as well as time spent documenting in the medical record, reviewing patients records and tests, obtaining history, placing orders, communicating with other healthcare professionals, counseling the patient, family or caregiver, and/or care coordination for the diagnoses above. Electronically Signed by: Garcia Valerio MD T: 12:38 PM CC: PCP: Gonzalo Fry Referring: Gonzalo Fry This document was completed utilizing speech recognition software. Grammatical errors, random word insertions, pronoun errors, and incomplete sentences are an occasional consequence of this system due to software limitations, ambient noise, and hardware issues. Any formal questions or concerns about the content, text or information contained within the body of this dictation should be directly addressed to the provider for clarification.
[2025-01-20 14:04] LABS: Basophils # (Auto) 0.0 Thou/mm3 (0.0-0.2); Basophils % (Auto) 1 % (0-2.5); Eosinophils # (Auto) 0.1 Thou/mm3 (0.0-0.5); Eosinophils % (Auto) 3 % (0-10); Hematocrit 30.7 % (36.0-46.0); Hemoglobin 10.3 g/dL (12.0-16.0); Immature Granulocytes Auto 0.01 Thou/mm3 (0.00-0.00); Lymphocytes # (Auto) 1.6 Thou/mm3 (1.0-4.8); Lymphocytes % (Auto) 32 % (10-50); Mean Corpuscular HGB Conc 33.6 g/dl (31.0-37.0); Mean Corpuscular Hemoglobin 31.5 pg (25.0-35.0); Mean Corpuscular Volume 94 fL (80-100); Monocytes # (Auto) 0.7 Thou/mm3 (0.0-0.8); Monocytes % (Auto) 13 % (0-12); Neutrophils # (Auto) 2.5 Thou/mm3 (1.8-7.7); Neutrophils % (Auto) 51 % (37-80); Nucleated Red Blood Cell # 0.00 Thou/mm3 (0.00-0.00); Nucleated Red Blood Cell % 0 /100 WBC (0); Platelet Count 262 Thou/mm3 (140-440); RDW Standard Deviation 61.1 fL (36.4-46.3); Red Blood Count 3.27 Miln/mm3 (4.00-5.20); White Blood Count 4.9 Thou/mm3 (3.6-11.0)
[2025-01-20 14:23] LABS: Magnesium 1.5 mg/dL (1.6-2.6)
[2025-01-20 14:28] LABS: Alanine Aminotransferase 11 U/L (10-49); Albumin, Serum 4.1 gm/dL (3.4-4.8); Albumin/Globulin Ratio 2.0 (1.2-2.2); Alkaline Phosphatase 76 U/L (46-116); Anion Gap 7 (7-16); Aspartate Amino Transferase 17 U/L (0-34); BUN/Creatinine Ratio 21 Ratio (12-20); Bilirubin,Total 0.3 mg/dL (0.3-1.2); Blood Urea Nitrogen 15 mg/dL (9-23); Calcium 9.1 mg/dL (8.3-10.6); Calcium (Corrected) 9.1 mg/dL (8.5-10.1); Carbon Dioxide 24.2 mMol/L (20.0-31.0); Chloride 106 mMol/L (98-107); Creatinine (Component) 0.7 mg/dL (0.6-1.3); Free T3 2.8 pg/mL (2.3-4.2); Globulin 2.1 gm/dL (2.3-3.5); Glucose 95 mg/dL (74-106); Osmolality,Calculated 274 (275-295); Potassium 4.0 mMol/L (3.4-5.1); Sodium 137 mMol/L (136-145); Thyroid Stimulating Hormone 0.80 uIU/mL (0.55-4.78); Total Protein 6.2 gm/dL (5.7-8.2); eGFR > 60 See Note
== END 2025-01-21 23:59 | disposition home or self-care (01) ==
LOC: SCTC 07:13
PROVIDERS: PCP Family Medicine; Referring Provider Family Medicine; Visit Provider Internal Medicine Hematology & Oncology
DX: Z51.11 Encounter for antineoplastic chemotherapy (principal); C22.1 Intrahepatic bile duct carcinoma; C78.6 Secondary malignant neoplasm of retroperitoneum and peritoneum; E11.9 Type 2 diabetes mellitus without complications; I10 Essential (primary) hypertension; Z79.84 Long term (current) use of oral hypoglycemic drugs
CPT/HCPCS: 36415; 36430; 36591; 80053; 83735; 84439; 84443; 84481; 85025; 96361; 96365; 96366; 96367; 96368; 96372; 96375; 96413; 96417; 96549; 99212; A4216; J1100; J1200; J1642; J1938; J2150; J2469; J3475; J3480; J7040; J7050; J9060; J9173; J9201; Q5101; G0463

== ENCOUNTER 2025-02-19 08:56 | Outpatient (RCR) | payer OTHER, SELFPAY ==
[2025-01-27 16:55] LABS: Basophils # (Auto) 0.1 Thou/mm3 (0.0-0.2); Basophils % (Auto) 2 % (0-2.5); Eosinophils # (Auto) 0.1 Thou/mm3 (0.0-0.5); Eosinophils % (Auto) 3 % (0-10); Hematocrit 31.2 % (36.0-46.0); Hemoglobin 10.4 g/dL (12.0-16.0); Immature Granulocytes Auto 0.02 Thou/mm3 (0.00-0.00); Lymphocytes # (Auto) 1.6 Thou/mm3 (1.0-4.8); Lymphocytes % (Auto) 50 % (10-50); Mean Corpuscular HGB Conc 33.3 g/dl (31.0-37.0); Mean Corpuscular Hemoglobin 31.5 pg (25.0-35.0); Mean Corpuscular Volume 95 fL (80-100); Monocytes # (Auto) 0.2 Thou/mm3 (0.0-0.8); Monocytes % (Auto) 7 % (0-12); Neutrophils # (Auto) 1.2 Thou/mm3 (1.8-7.7); Neutrophils % (Auto) 37 % (37-80); Nucleated Red Blood Cell # 0.00 Thou/mm3 (0.00-0.00); Nucleated Red Blood Cell % 0 /100 WBC (0); Platelet Count 345 Thou/mm3 (140-440); RDW Standard Deviation 58.3 fL (36.4-46.3); Red Blood Count 3.30 Miln/mm3 (4.00-5.20); White Blood Count 3.3 Thou/mm3 (3.6-11.0)
[2025-01-27 17:17] LABS: Alanine Aminotransferase 13 U/L (10-49); Albumin, Serum 4.2 gm/dL (3.4-4.8); Albumin/Globulin Ratio 2.2 (1.2-2.2); Alkaline Phosphatase 73 U/L (46-116); Anion Gap 12 (7-16); Aspartate Amino Transferase 18 U/L (0-34); BUN/Creatinine Ratio 21 Ratio (12-20); Bilirubin,Total 0.3 mg/dL (0.3-1.2); Blood Urea Nitrogen 19 mg/dL (9-23); Calcium 9.6 mg/dL (8.3-10.6); Calcium (Corrected) 9.6 mg/dL (8.5-10.1); Carbon Dioxide 24.2 mMol/L (20.0-31.0); Chloride 103 mMol/L (98-107); Creatinine (Component) 0.9 mg/dL (0.6-1.3); Free T3 2.7 pg/mL (2.3-4.2); Globulin 1.9 gm/dL (2.3-3.5); Glucose 185 mg/dL (74-106); Magnesium 1.3 mg/dL (1.6-2.6); Osmolality,Calculated 284 (275-295); Potassium 3.8 mMol/L (3.4-5.1); Sodium 139 mMol/L (136-145); Thyroid Stimulating Hormone 0.70 uIU/mL (0.55-4.78); Total Protein 6.1 gm/dL (5.7-8.2); eGFR > 60 See Note
[2025-02-10 15:31] LABS: Basophils # (Auto) 0.0 Thou/mm3 (0.0-0.2); Basophils % (Auto) 1 % (0-2.5); Eosinophils # (Auto) 0.1 Thou/mm3 (0.0-0.5); Eosinophils % (Auto) 2 % (0-10); Hematocrit 30.7 % (36.0-46.0); Hemoglobin 10.5 g/dL (12.0-16.0); Immature Granulocytes Auto 0.04 Thou/mm3 (0.00-0.00); Lymphocytes # (Auto) 1.5 Thou/mm3 (1.0-4.8); Lymphocytes % (Auto) 35 % (10-50); Mean Corpuscular HGB Conc 34.2 g/dl (31.0-37.0); Mean Corpuscular Hemoglobin 32.5 pg (25.0-35.0); Mean Corpuscular Volume 95 fL (80-100); Monocytes # (Auto) 0.6 Thou/mm3 (0.0-0.8); Monocytes % (Auto) 14 % (0-12); Neutrophils # (Auto) 2.1 Thou/mm3 (1.8-7.7); Neutrophils % (Auto) 48 % (37-80); Nucleated Red Blood Cell # 0.00 Thou/mm3 (0.00-0.00); Nucleated Red Blood Cell % 0 /100 WBC (0); Platelet Count 197 Thou/mm3 (140-440); RDW Standard Deviation 58.1 fL (36.4-46.3); Red Blood Count 3.23 Miln/mm3 (4.00-5.20); White Blood Count 4.4 Thou/mm3 (3.6-11.0)
[2025-02-10 15:55] LABS: Magnesium 1.8 mg/dL (1.6-2.6)
[2025-02-10 15:57] LABS: Alanine Aminotransferase 11 U/L (10-49); Albumin, Serum 4.4 gm/dL (3.4-4.8); Albumin/Globulin Ratio 2.4 (1.2-2.2); Alkaline Phosphatase 113 U/L (46-116); Anion Gap 12 (7-16); Aspartate Amino Transferase 12 U/L (0-34); BUN/Creatinine Ratio 19 Ratio (12-20); Bilirubin,Total 0.3 mg/dL (0.3-1.2); Blood Urea Nitrogen 15 mg/dL (9-23); Calcium 9.8 mg/dL (8.3-10.6); Calcium (Corrected) 9.8 mg/dL (8.5-10.1); Carbon Dioxide 25.4 mMol/L (20.0-31.0); Chloride 105 mMol/L (98-107); Creatinine (Component) 0.8 mg/dL (0.6-1.3); Globulin 1.8 gm/dL (2.3-3.5); Glucose 185 mg/dL (74-106); Osmolality,Calculated 288 (275-295); Potassium 4.0 mMol/L (3.4-5.1); Sodium 142 mMol/L (136-145); Thyroid Stimulating Hormone 0.80 uIU/mL (0.55-4.78); Total Protein 6.2 gm/dL (5.7-8.2); eGFR > 60 See Note
[2025-02-10 16:02] LABS: Free T3 2.7 pg/mL (2.3-4.2)
[2025-02-11 09:04] LABS: Ferritin 163 ng/mL (7.3-270.7); Iron 57 mcg/dL (50-170); Percent Iron Saturation 18 % (20-55); Total Iron Binding Capacity 302 mcg/dL (250-425); Unsaturated Iron Binding 245 (225-295)
[2025-02-11 09:05] LABS: Folate 22.66 ng/mL (>5.38); Vitamin B12 1592 pg/mL (211-911)
[2025-02-17 06:32] LABS: Haptoglobin* 112 mg/dL (43-212)
[2025-02-17 12:37] LABS: Basophils # (Auto) 0.0 Thou/mm3 (0.0-0.2); Basophils % (Auto) 1 % (0-2.5); Eosinophils # (Auto) 0.1 Thou/mm3 (0.0-0.5); Eosinophils % (Auto) 2 % (0-10); Hematocrit 30.7 % (36.0-46.0); Hemoglobin 10.4 g/dL (12.0-16.0); Immature Granulocytes Auto 0.01 Thou/mm3 (0.00-0.00); Lymphocytes # (Auto) 1.2 Thou/mm3 (1.0-4.8); Lymphocytes % (Auto) 36 % (10-50); Mean Corpuscular HGB Conc 33.9 g/dl (31.0-37.0); Mean Corpuscular Hemoglobin 31.8 pg (25.0-35.0); Mean Corpuscular Volume 94 fL (80-100); Monocytes # (Auto) 0.4 Thou/mm3 (0.0-0.8); Monocytes % (Auto) 13 % (0-12); Neutrophils # (Auto) 1.5 Thou/mm3 (1.8-7.7); Neutrophils % (Auto) 48 % (37-80); Nucleated Red Blood Cell # 0.00 Thou/mm3 (0.00-0.00); Nucleated Red Blood Cell % 0 /100 WBC (0); Platelet Count 308 Thou/mm3 (140-440); RDW Standard Deviation 55.4 fL (36.4-46.3); Red Blood Count 3.27 Miln/mm3 (4.00-5.20); White Blood Count 3.2 Thou/mm3 (3.6-11.0)
[2025-02-17 12:53] LABS: Magnesium 1.8 mg/dL (1.6-2.6)
[2025-02-17 12:57] LABS: Alanine Aminotransferase 12 U/L (10-49); Albumin, Serum 4.3 gm/dL (3.4-4.8); Albumin/Globulin Ratio 2.0 (1.2-2.2); Alkaline Phosphatase 81 U/L (46-116); Anion Gap 10 (7-16); Aspartate Amino Transferase 16 U/L (0-34); BUN/Creatinine Ratio 19 Ratio (12-20); Bilirubin,Total 0.4 mg/dL (0.3-1.2); Blood Urea Nitrogen 13 mg/dL (9-23); Calcium 9.7 mg/dL (8.3-10.6); Calcium (Corrected) 9.7 mg/dL (8.5-10.1); Carbon Dioxide 23.3 mMol/L (20.0-31.0); Chloride 100 mMol/L (98-107); Creatinine (Component) 0.7 mg/dL (0.6-1.3); Free T3 2.6 pg/mL (2.3-4.2); Globulin 2.1 gm/dL (2.3-3.5); Glucose 125 mg/dL (74-106); Osmolality,Calculated 267 (275-295); Potassium 4.0 mMol/L (3.4-5.1); Sodium 133 mMol/L (136-145); Thyroid Stimulating Hormone 0.79 uIU/mL (0.55-4.78); Total Protein 6.4 gm/dL (5.7-8.2); eGFR > 60 See Note
[2025-02-17 12:59] LABS: Ferritin 221 ng/mL (7.3-270.7); Iron 17 mcg/dL (50-170); Percent Iron Saturation 5 % (20-55); Total Iron Binding Capacity 289 mcg/dL (250-425); Unsaturated Iron Binding 272 (225-295)
[2025-02-17 13:10] LABS: Folate > 24.00 ng/mL (>5.38); Vitamin B12 1329 pg/mL (211-911)
[2025-02-24 05:06] LABS: Haptoglobin* 198 mg/dL (43-212)
== END 2025-02-21 23:59 | disposition home or self-care (01) ==
LOC: SCTC 08:56
PROVIDERS: PCP Family Medicine; Referring Provider Family Medicine; Visit Provider Internal Medicine Hematology & Oncology
DX: Z51.11 Encounter for antineoplastic chemotherapy (principal); C22.1 Intrahepatic bile duct carcinoma; C78.89 Secondary malignant neoplasm of other digestive organs; C78.6 Secondary malignant neoplasm of retroperitoneum and peritoneum; E11.9 Type 2 diabetes mellitus without complications; I10 Essential (primary) hypertension; Z90.49 Acquired absence of other specified parts of digestive tract; Z79.84 Long term (current) use of oral hypoglycemic drugs
CPT/HCPCS: 36591; 80053; 82607; 82728; 82746; 83010; 83540; 83550; 83735; 84443; 84481; 85025; 96367; 96368; 96372; 96375; 96413; 96415; 96417; A4216; J1100; J1200; J1642; J1938; J2150; J2469; J3475; J3480; J7030; J7040; J7050; J9060; J9173; J9201; Q5101

== ENCOUNTER → 2025-03-03 | Outpatient (CLI) | payer OTHER, SELFPAY ==
[2025-03-03 10:28] LABS: Basophils # (Auto) 0.1 Thou/mm3 (0.0-0.2); Basophils % (Auto) 1 % (0-2.5); Eosinophils # (Auto) 0.1 Thou/mm3 (0.0-0.5); Eosinophils % (Auto) 3 % (0-10); Hematocrit 32.4 % (36.0-46.0); Hemoglobin 10.8 g/dL (12.0-16.0); Immature Granulocytes Auto 0.10 Thou/mm3 (0.00-0.00); Lymphocytes # (Auto) 1.9 Thou/mm3 (1.0-4.8); Lymphocytes % (Auto) 35 % (10-50); Mean Corpuscular HGB Conc 33.3 g/dl (31.0-37.0); Mean Corpuscular Hemoglobin 32.4 pg (25.0-35.0); Mean Corpuscular Volume 97 fL (80-100); Monocytes # (Auto) 1.0 Thou/mm3 (0.0-0.8); Monocytes % (Auto) 17 % (0-12); Neutrophils # (Auto) 2.3 Thou/mm3 (1.8-7.7); Neutrophils % (Auto) 42 % (37-80); Nucleated Red Blood Cell # 0.00 Thou/mm3 (0.00-0.00); Nucleated Red Blood Cell % 0 /100 WBC (0); Platelet Count 266 Thou/mm3 (140-440); RDW Standard Deviation 58.9 fL (36.4-46.3); Red Blood Count 3.33 Miln/mm3 (4.00-5.20); White Blood Count 5.5 Thou/mm3 (3.6-11.0)
[2025-03-03 10:46] LABS: Alanine Aminotransferase 13 U/L (10-49); Albumin, Serum 4.4 gm/dL (3.4-4.8); Albumin/Globulin Ratio 2.3 (1.2-2.2); Alkaline Phosphatase 121 U/L (46-116); Anion Gap 9 (7-16); Aspartate Amino Transferase 17 U/L (0-34); BUN/Creatinine Ratio 14 Ratio (12-20); Bilirubin,Total 0.3 mg/dL (0.3-1.2); Blood Urea Nitrogen 13 mg/dL (9-23); Calcium 9.8 mg/dL (8.3-10.6); Calcium (Corrected) 9.8 mg/dL (8.5-10.1); Carbon Dioxide 26.6 mMol/L (20.0-31.0); Chloride 102 mMol/L (98-107); Creatinine (Component) 0.9 mg/dL (0.6-1.3); Globulin 1.9 gm/dL (2.3-3.5); Glucose 95 mg/dL (74-106); Magnesium 2.0 mg/dL (1.6-2.6); Osmolality,Calculated 275 (275-295); Potassium 4.4 mMol/L (3.4-5.1); Sodium 138 mMol/L (136-145); Thyroid Stimulating Hormone 0.86 uIU/mL (0.55-4.78); Total Protein 6.3 gm/dL (5.7-8.2); eGFR > 60 See Note
[2025-03-08 06:29] LABS: T3,Total* 114 ng/dL (76-181)
== END | disposition home or self-care (01) ==
LOC: SCTO 09:34
PROVIDERS: PCP Family Medicine; Referring Provider Internal Medicine Hematology & Oncology; Visit Provider Internal Medicine Hematology & Oncology
DX: C22.1 Intrahepatic bile duct carcinoma (principal)
CPT/HCPCS: 36415; 80053; 83735; 84443; 84480; 85025

== ENCOUNTER → 2025-03-10 | Outpatient (CLI) | payer OTHER, SELFPAY ==
[2025-03-10 12:09] LABS: Basophils # (Auto) 0.0 Thou/mm3 (0.0-0.2); Basophils % (Auto) 1 % (0-2.5); Eosinophils # (Auto) 0.1 Thou/mm3 (0.0-0.5); Eosinophils % (Auto) 2 % (0-10); Hematocrit 30.5 % (36.0-46.0); Hemoglobin 10.2 g/dL (12.0-16.0); Immature Granulocytes Auto 0.01 Thou/mm3 (0.00-0.00); Lymphocytes # (Auto) 1.7 Thou/mm3 (1.0-4.8); Lymphocytes % (Auto) 39 % (10-50); Mean Corpuscular HGB Conc 33.4 g/dl (31.0-37.0); Mean Corpuscular Hemoglobin 32.3 pg (25.0-35.0); Mean Corpuscular Volume 97 fL (80-100); Monocytes # (Auto) 0.3 Thou/mm3 (0.0-0.8); Monocytes % (Auto) 6 % (0-12); Neutrophils # (Auto) 2.2 Thou/mm3 (1.8-7.7); Neutrophils % (Auto) 52 % (37-80); Nucleated Red Blood Cell # 0.00 Thou/mm3 (0.00-0.00); Nucleated Red Blood Cell % 0 /100 WBC (0); Platelet Count 395 Thou/mm3 (140-440); RDW Standard Deviation 56.6 fL (36.4-46.3); Red Blood Count 3.16 Miln/mm3 (4.00-5.20); White Blood Count 4.2 Thou/mm3 (3.6-11.0)
[2025-03-10 12:31] LABS: Alanine Aminotransferase 12 U/L (10-49); Albumin, Serum 4.3 gm/dL (3.4-4.8); Albumin/Globulin Ratio 2.3 (1.2-2.2); Alkaline Phosphatase 91 U/L (46-116); Anion Gap 9 (7-16); Aspartate Amino Transferase 19 U/L (0-34); BUN/Creatinine Ratio 18 Ratio (12-20); Bilirubin,Total 0.3 mg/dL (0.3-1.2); Blood Urea Nitrogen 16 mg/dL (9-23); Calcium 10.0 mg/dL (8.3-10.6); Calcium (Corrected) 10.0 mg/dL (8.5-10.1); Carbon Dioxide 26.9 mMol/L (20.0-31.0); Chloride 100 mMol/L (98-107); Creatinine (Component) 0.9 mg/dL (0.6-1.3); Globulin 1.9 gm/dL (2.3-3.5); Glucose 128 mg/dL (74-106); Magnesium 1.5 mg/dL (1.6-2.6); Osmolality,Calculated 275 (275-295); Potassium 4.8 mMol/L (3.4-5.1); Sodium 136 mMol/L (136-145); Thyroid Stimulating Hormone 1.03 uIU/mL (0.55-4.78); Total Protein 6.2 gm/dL (5.7-8.2); eGFR > 60 See Note
[2025-03-17 06:35] LABS: T3,Total* 116 ng/dL (76-181)
== END | disposition home or self-care (01) ==
LOC: SCTO 10:30
PROVIDERS: PCP Family Medicine; Referring Provider Internal Medicine Hematology & Oncology; Visit Provider Internal Medicine Hematology & Oncology
DX: C22.1 Intrahepatic bile duct carcinoma (principal)
CPT/HCPCS: 36415; 80053; 83735; 84443; 84480; 85025

== ENCOUNTER 2025-03-19 07:48 | Outpatient (RCR) | payer OTHER, SELFPAY ==
--- NOTE | 2025-03-22 02:46 | CTCFLWUP_ITS ---
Patient: SHANON LINN : 1955 Page 3 of 5 FOLLOW UP NOTE DATE OF SERVICE: 03/17/2025 NAME: SHANON LINN ACCOUNT: [id number] : 1955 AGE: 69 INTERVAL HISTORY: Patient patient has completed 6 cycles of chemotherapy and immunotherapy. overall tolerating well ONCOLOGY HISTORY: ONCOLOGY HISTORY:?CloneBlock Oncology Hx? 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 DATE OF DIAGNOSIS: August 2024 STAGE/TNM: IV T4 N1 M1 TREATMENT HISTORY: Care?Plan Start?Date Cycle Day Intent Durvalumab,?cisplatin?and?gemcitabine?cholangiocarcinoma?regimen?1 11/19/2024 1 21 Palliative VENOfer?200mg?IV?wkly?for?10?weeks 03/17/2025 1 70 Palliative Durvalumab?maintenance?cholangiocarcinoma?regimen?2 05/21/2025 1 28 Maintenance HISTORY OF PRESENT ILLNESS: Chief Complaint Follow-up for stage 4 cholangiocarcinoma, asymptomatic History of Present Illness Shanon Linn, a patient with type 2 diabetes mellitus and hypertension, presents for follow-up of newly diagnosed stage 4 cholangiocarcinoma. She was initially seen for intermittent right upper quadrant pain, which led to a laparoscopic cholecystectomy on June 05, 2024. The pathology revealed poorly differentiated adenocarcinoma. Following the cholecystectomy, Ms. Linn underwent further diagnostic procedures, including an MRCP that showed acute narrowing of the distal common bile duct. A staging CT scan revealed a possible mass near the cystic duct clips. On September 07, 2024, she underwent an open procedure where masses were found in the gallbladder fossa, cystic duct and bile duct junction, liver, and retroperitoneum. Pathology confirmed metastatic disease in the liver and peritoneum. Ms. Linn has completed one cycle of chemotherapy with OyzFndahtvg-Vfabvupuu-Nkcfsqfqsn. She is seen today, October 19, 2024, for follow- up and reports being asymptomatic and doing very well. The patient understands her diagnosis of stage 4 cholangiocarcinoma and its poor prognosis but expresses a desire to continue chemotherapy. She has been adherent to her treatment plan thus far. PET CT scan is showing decrease in size of lymph node as well as peritoneal mets Medical History - Type 2 diabetes mellitus, managed with metformin - Hypertension Surgical History - Open procedure on 09/07/2024 for removal of masses in gallbladder fossa, cystic duct and bile duct junction, liver, and retroperitoneum - Laparoscopic cholecystectomy on 06/05/2024 for gallbladder stones, resulting in diagnosis of poorly differentiated adenocarcinoma Medications and Supplements - Metformin - GemCytabine 1000 mg/m? on day 1 and day 8 - Cisplatin 25 mg/m? on day 1 and day 8 - Durvalumab 1500 mg on day 1 Review of Systems General: Negative for fever, chills, fatigue, muscle aches, appetite changes, or weight changes. Gastrointestinal: Negative for abdominal pain. OTHER MEDICAL HISTORY/CONDITIONS: Malignant cholangiocarcinoma - dx 06/05/24 HTN Hyperlipidemia Diabetes Laproscopic cholecystectomy 06/05/24 - Dr. 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 atorvastatin - 10 mg 1 tab Daily 2. Compazine - 10 mg 1 tab Every 6 Hours 3. lisinopril - 10 mg 1 tab Daily 4. magnesium oxide - 400 mg (241.3 mg magnesium) 1 tab Daily 5. metFORMIN - 500 mg 1 tab Daily 6. ondansetron - 8 mg 1 tab Every 8 Hours?Palabra Meds? Medications Last Reconciled by Chinyere Robledo MD on 03/17/2025 ALLERGIES: Iodine and Iodide Containing Products REVIEW OF SYSTEMS: A complete 14-point review of systems was performed and is negative except as noted in interval history. PHYSICAL EXAMINATION:?CloneBlock PE? VITAL SIGNS: Temperature?98, B/P?122/72, Oxygen?Saturation?96% Weight?145?lbs (Change?since?03/16/25:?-0.2?lbs) PAIN: 0 - No pain GENERAL APPEARANCE: Appears well, in no apparent distress, appropriately interactive. HEENT: Normocephalic, no temporal wasting, normal conjunctiva, no scleral icterus, normal hearing, lips without lesions, neck normal range of motion. CARDIOVASCULAR: Not assessed. PULMONARY: Normal respiratory effort, no respiratory distress or use of accessory muscles, speaking in full sentences, no tachypnea. EXTREMITIES: No pedal edema or cyanosis. SKIN: Normal skin appearance. NEUROLOGIC: Alert and oriented x4. PSHYCHIATRIC: Appropriate affect, mood normal, behavior normal, intact thought and speech. LABORATORY DATA: I have personally reviewed and interpreted each of the patient?s relevant lab tests, abnormal findings are below: Date 03/03/25 03/10/25 ??WHITE?BLOOD?COUNT?(Thou/mm3) 5.5 4.2 ??RED?BLOOD?COUNT?(Miln/mm3) 3.33?L 3.16?L ??HEMOGLOBIN?(gm/dl) 10.8?L 10.2?L ??HEMATOCRIT?(%) 32.4?L 30.5?L ??PLATELET?COUNT?(Thou/mm3) 266 395 ??NEUTROPHILS?%,?AUTO?(%) 42 52 ??LYMPH?%,?AUTO?(%) 35 39 ??NEUTROPHILS,?AUTO?(Thou/mm3) 2.3 2.2 ??GLUCOSE,RANDOM?(mg/dL) ? 128?H ??BLOOD?UREA?NITROGEN?(mg/dL) ? 16 ??CREATININE?(mg/dL) ? 0.90 ??SODIUM?(mmol/L) ? 136 ??POTASSIUM?(mmol/L) ? 4.8 ??CHLORIDE?(mmol/L) ? 100 ??CrCl?(CandG)?(ml/min) ? 59.04 ??AST/SGOT?(Unit/L) ? 19 ??ALT/SGPT?(Unit/L) ? 12 ??ALKALINE?PHOSPHATASE?(Unit/L) ? 91 ??BILIRUBIN,?TOTAL?(mg/dL) ? 0.3 ??PROTEIN?TOTAL?(gm/dl) ? 6.2 ??ALBUMIN,?SERUM?(gm/dl) ? 4.3 ??GLOBULIN?(gm/dl) ? 1.9?L ??ALBUMIN/GLOBULIN?RATIO ? 2.3?H ??CALCIUM,?SERUM?(mg/dL) ? 10.0 ??CALCIUM?SERUM?(CORRECTED)?(mg/dL) ? 10.0 ??MAGNESIUM?(mg/dL) ? 1.5?L ASSESSMENT/PLAN:?Sia Valerio Assessment/Plan? Shanon Linn, female patient with type 2 diabetes mellitus and hypertension, presents for follow-up of newly diagnosed stage 4 cholangiocarcinoma with metastases to liver and peritoneum. Stage 4 Cholangiocarcinoma Assessment: Ms. Linn was diagnosed with metastatic extrahepatic cholangiocarcinoma following a laparoscopic cholecystectomy on 06/05/2024, which revealed poorly differentiated adenocarcinoma. Subsequent imaging studies, including MRCP and PET-CT, confirmed the diagnosis and showed disease progressi on. On 09/07/2024, an open procedure revealed masses in the gallbladder fossa, cystic duct and bile duct junction, liver, and retroperitoneum. Pathology confirmed poorly differentiated carcinoma with metastases to the liver and peritoneum. Molecular studies showed intact expression of MLH1, MSH2, MSH6, PMS2, positive for clonidine, 18.2 expression by ISC, and HER2 negative. The patient has completed one cycle of chemotherapy with QsoEwsqdooz-Ytbvovldv-Gjoskwdosa and is currently asymptomatic. -Patient completed 6 cycles of chemotherapy regimen: GemCytabine 1000 mg/m? on days 1 and 8, Cisplatin 25 mg/m? on days 1 and 8, Durvalumab 1500 mg on day 1 Continue chemo immunotherapy Get PET CT scan results from [facility] Continue to follow with [facility] CT DNA is positive type 2 Diabetes Mellitus Assessment: Patient has a history of type 2 diabetes mellitus, currently managed with metformin. Plan: - Continue current management with metformin (dose not specified) Hypertension Assessment: Patient has a history of hypertension, Plan: - Continue current antihypertensive management (pcp) RETURN TO CLINIC: I reviewed the diagnosis, prognosis, and recommended treatment/procedure options with the patient (and/or their legal motor vehicle representative), including the potential benefits, risks, side effects and alternative therapies. We also discussed the option of no treatment and the possibility of clinical trial participation, if applicable. All questions were addressed, and they demonstrated understanding. They provided informed consent to proceed with the proposed plan of care. ALFREDOING AND COMPLIANCE: I reviewed external records from providers outside my specialty as summarized above. I spent a total of 50 minutes on this patient?s care on the day of their visit excluding time spent related to any billed procedures. This time includes time spent with the patient as well as time spent documenting in the medical record, reviewing patients records and tests, obtaining history, placing orders, communicating with other healthcare professionals, counseling the patient, family or caregiver, and/or care coordination for the diagnoses above. Electronically Signed by: Garcia Valerio MD T: 2:44 AM CC: PCP: Chinyere Erickson Referring: Chinyere Erickson This document was completed utilizing speech recognition software. Grammatical errors, random word insertions, pronoun errors, and incomplete sentences are an occasional consequence of this system due to software limitations, ambient noise, and hardware issues. Any formal questions or concerns about the content, text or information contained within the body of this dictation should be directly addressed to the provider for clarification.
== END 2025-03-23 23:59 | disposition home or self-care (01) ==
LOC: SCTC 07:48
PROVIDERS: PCP Family Medicine; Referring Provider Family Medicine; Visit Provider Internal Medicine Hematology & Oncology
DX: Z51.11 Encounter for antineoplastic chemotherapy (principal); C22.1 Intrahepatic bile duct carcinoma; C78.6 Secondary malignant neoplasm of retroperitoneum and peritoneum; E11.9 Type 2 diabetes mellitus without complications; I10 Essential (primary) hypertension; Z90.49 Acquired absence of other specified parts of digestive tract; Z79.84 Long term (current) use of oral hypoglycemic drugs
CPT/HCPCS: 96367; 96368; 96372; 96375; 96413; 96417; 99212; A4216; J1100; J1200; J1642; J2150; J2469; J3475; J3480; J3490; J7030; J7040; J7050; J9060; J9173; J9201; Q5101; G0463

== ENCOUNTER → 2025-04-14 | Outpatient (CLI) | payer OTHER, SELFPAY ==
[2025-04-14 11:34] LABS: Basophils # (Auto) 0.0 Thou/mm3 (0.0-0.2); Basophils % (Auto) 1 % (0-2.5); Eosinophils # (Auto) 0.1 Thou/mm3 (0.0-0.5); Eosinophils % (Auto) 2 % (0-10); Hematocrit 31.7 % (36.0-46.0); Hemoglobin 10.5 g/dL (12.0-16.0); Immature Granulocytes Auto 0.01 Thou/mm3 (0.00-0.00); Lymphocytes # (Auto) 1.2 Thou/mm3 (1.0-4.8); Lymphocytes % (Auto) 30 % (10-50); Mean Corpuscular HGB Conc 33.1 g/dl (31.0-37.0); Mean Corpuscular Hemoglobin 32.3 pg (25.0-35.0); Mean Corpuscular Volume 98 fL (80-100); Monocytes # (Auto) 0.6 Thou/mm3 (0.0-0.8); Monocytes % (Auto) 14 % (0-12); Neutrophils # (Auto) 2.1 Thou/mm3 (1.8-7.7); Neutrophils % (Auto) 53 % (37-80); Nucleated Red Blood Cell # 0.00 Thou/mm3 (0.00-0.00); Nucleated Red Blood Cell % 0 /100 WBC (0); Platelet Count 248 Thou/mm3 (140-440); RDW Standard Deviation 55.8 fL (36.4-46.3); Red Blood Count 3.25 Miln/mm3 (4.00-5.20); White Blood Count 3.9 Thou/mm3 (3.6-11.0)
[2025-04-14 11:51] LABS: Alanine Aminotransferase 19 U/L (10-49); Albumin, Serum 4.6 gm/dL (3.4-4.8); Albumin/Globulin Ratio 2.9 (1.2-2.2); Alkaline Phosphatase 75 U/L (46-116); Anion Gap 12 (7-16); Aspartate Amino Transferase 22 U/L (0-34); BUN/Creatinine Ratio 18 Ratio (12-20); Bilirubin,Total 0.3 mg/dL (0.3-1.2); Blood Urea Nitrogen 14 mg/dL (9-23); Calcium 9.3 mg/dL (8.3-10.6); Calcium (Corrected) 9.3 mg/dL (8.5-10.1); Carbon Dioxide 24.5 mMol/L (20.0-31.0); Chloride 102 mMol/L (98-107); Creatinine (Component) 0.8 mg/dL (0.6-1.3); Globulin 1.6 gm/dL (2.3-3.5); Glucose 119 mg/dL (74-106); Osmolality,Calculated 277 (275-295); Potassium 4.2 mMol/L (3.4-5.1); Sodium 138 mMol/L (136-145); Total Protein 6.2 gm/dL (5.7-8.2); eGFR > 60 See Note
[2025-04-14 11:52] LABS: Carcinoembryonic Antigen < 0.5 ng/mL (0.0-5.0)
[2025-04-14 17:26] LABS: Magnesium 1.7 mg/dL (1.6-2.6)
[2025-04-20 07:24] LABS: CA 19-9 Antigen* 27 U/mL (<34)
== END | disposition home or self-care (01) ==
PROVIDERS: PCP Family Medicine; Referring Provider Internal Medicine Hematology & Oncology; Visit Provider Internal Medicine Hematology & Oncology
DX: C22.1 Intrahepatic bile duct carcinoma (principal)
CPT/HCPCS: 36415; 80053; 82378; 83735; 85025; 86301

== ENCOUNTER 2025-04-23 11:08 | Outpatient (RCR) | payer OTHER, SELFPAY ==
[2025-03-24 15:54] LABS: Basophils # (Auto) 0.0 Thou/mm3 (0.0-0.2); Basophils % (Auto) 0 % (0-2.5); Eosinophils # (Auto) 0.0 Thou/mm3 (0.0-0.5); Eosinophils % (Auto) 0 % (0-10); Hematocrit 33.7 % (36.0-46.0); Hemoglobin 11.2 g/dL (12.0-16.0); Immature Granulocytes Auto 0.40 Thou/mm3 (0.00-0.00); Lymphocytes # (Auto) 1.2 Thou/mm3 (1.0-4.8); Lymphocytes % (Auto) 12 % (10-50); Mean Corpuscular HGB Conc 33.2 g/dl (31.0-37.0); Mean Corpuscular Hemoglobin 32.1 pg (25.0-35.0); Mean Corpuscular Volume 97 fL (80-100); Monocytes # (Auto) 0.2 Thou/mm3 (0.0-0.8); Monocytes % (Auto) 2 % (0-12); Neutrophils # (Auto) 8.0 Thou/mm3 (1.8-7.7); Neutrophils % (Auto) 81 % (37-80); Nucleated Red Blood Cell # 0.00 Thou/mm3 (0.00-0.00); Nucleated Red Blood Cell % 0 /100 WBC (0); Platelet Count 230 Thou/mm3 (140-440); RDW Standard Deviation 59.5 fL (36.4-46.3); Red Blood Count 3.49 Miln/mm3 (4.00-5.20); White Blood Count 9.9 Thou/mm3 (3.6-11.0)
[2025-03-24 16:16] LABS: Magnesium 1.9 mg/dL (1.6-2.6)
[2025-03-24 16:20] LABS: Free T3 2.8 pg/mL (2.3-4.2)
[2025-03-24 16:21] LABS: Alanine Aminotransferase 14 U/L (10-49); Albumin, Serum 4.9 gm/dL (3.4-4.8); Albumin/Globulin Ratio 2.2 (1.2-2.2); Alkaline Phosphatase 126 U/L (46-116); Anion Gap 13 (7-16); Aspartate Amino Transferase 20 U/L (0-34); BUN/Creatinine Ratio 18 Ratio (12-20); Bilirubin,Total 0.4 mg/dL (0.3-1.2); Blood Urea Nitrogen 14 mg/dL (9-23); Calcium 10.1 mg/dL (8.3-10.6); Calcium (Corrected) 10.1 mg/dL (8.5-10.1); Carbon Dioxide 21.6 mMol/L (20.0-31.0); Chloride 101 mMol/L (98-107); Creatinine (Component) 0.8 mg/dL (0.6-1.3); Globulin 2.2 gm/dL (2.3-3.5); Glucose 176 mg/dL (74-106); Osmolality,Calculated 276 (275-295); Potassium 4.1 mMol/L (3.4-5.1); Sodium 136 mMol/L (136-145); Thyroid Stimulating Hormone 0.47 uIU/mL (0.55-4.78); Total Protein 7.1 gm/dL (5.7-8.2); eGFR > 60 See Note
[2025-03-24 16:23] LABS: Band Neutrophils (Manual) 4 % (0-6); Lymphocytes (Manual) 11 % (20-44); Monocytes (Manual) 1 % (2-9); Neutrophils (Manual) 84 % (50-70)
[2025-03-31 13:44] LABS: Basophils # (Auto) 0.1 Thou/mm3 (0.0-0.2); Basophils % (Auto) 1 % (0-2.5); Eosinophils # (Auto) 0.0 Thou/mm3 (0.0-0.5); Eosinophils % (Auto) 1 % (0-10); Hematocrit 29.1 % (36.0-46.0); Hemoglobin 9.8 g/dL (12.0-16.0); Immature Granulocytes Auto 0.01 Thou/mm3 (0.00-0.00); Lymphocytes # (Auto) 0.9 Thou/mm3 (1.0-4.8); Lymphocytes % (Auto) 15 % (10-50); Mean Corpuscular HGB Conc 33.7 g/dl (31.0-37.0); Mean Corpuscular Hemoglobin 32.7 pg (25.0-35.0); Mean Corpuscular Volume 97 fL (80-100); Monocytes # (Auto) 0.2 Thou/mm3 (0.0-0.8); Monocytes % (Auto) 3 % (0-12); Neutrophils # (Auto) 4.4 Thou/mm3 (1.8-7.7); Neutrophils % (Auto) 80 % (37-80); Nucleated Red Blood Cell # 0.00 Thou/mm3 (0.00-0.00); Nucleated Red Blood Cell % 0 /100 WBC (0); Platelet Count 295 Thou/mm3 (140-440); RDW Standard Deviation 56.9 fL (36.4-46.3); Red Blood Count 3.00 Miln/mm3 (4.00-5.20); White Blood Count 5.6 Thou/mm3 (3.6-11.0)
[2025-03-31 13:54] LABS: Magnesium 1.9 mg/dL (1.6-2.6)
[2025-03-31 13:57] LABS: Alanine Aminotransferase 13 U/L (10-49); Albumin, Serum 4.1 gm/dL (3.4-4.8); Albumin/Globulin Ratio 2.1 (1.2-2.2); Alkaline Phosphatase 85 U/L (46-116); Anion Gap 9 (7-16); Aspartate Amino Transferase 16 U/L (0-34); BUN/Creatinine Ratio 17 Ratio (12-20); Bilirubin,Total 0.4 mg/dL (0.3-1.2); Blood Urea Nitrogen 12 mg/dL (9-23); Calcium 9.1 mg/dL (8.3-10.6); Calcium (Corrected) 9.1 mg/dL (8.5-10.1); Carbon Dioxide 23.1 mMol/L (20.0-31.0); Chloride 103 mMol/L (98-107); Creatinine (Component) 0.7 mg/dL (0.6-1.3); Free T3 3.1 pg/mL (2.3-4.2); Globulin 2.0 gm/dL (2.3-3.5); Glucose 122 mg/dL (74-106); Osmolality,Calculated 270 (275-295); Potassium 4.2 mMol/L (3.4-5.1); Sodium 135 mMol/L (136-145); Thyroid Stimulating Hormone 0.75 uIU/mL (0.55-4.78); Total Protein 6.1 gm/dL (5.7-8.2); eGFR > 60 See Note
[2025-04-15 09:02] LABS: Free T4 (Free Thyroxine) 0.98 ng/dL (0.89-1.76); Thyroid Stimulating Hormone 0.33 uIU/mL (0.55-4.78)
[2025-04-21 09:28] LABS: Basophils # (Auto) 0.1 Thou/mm3 (0.0-0.2); Basophils % (Auto) 1 % (0-2.5); Eosinophils # (Auto) 0.0 Thou/mm3 (0.0-0.5); Eosinophils % (Auto) 1 % (0-10); Hematocrit 31.3 % (36.0-46.0); Hemoglobin 10.7 g/dL (12.0-16.0); Immature Granulocytes Auto 0.02 Thou/mm3 (0.00-0.00); Lymphocytes # (Auto) 1.9 Thou/mm3 (1.0-4.8); Lymphocytes % (Auto) 52 % (10-50); Mean Corpuscular HGB Conc 34.2 g/dl (31.0-37.0); Mean Corpuscular Hemoglobin 32.4 pg (25.0-35.0); Mean Corpuscular Volume 95 fL (80-100); Monocytes # (Auto) 0.1 Thou/mm3 (0.0-0.8); Monocytes % (Auto) 4 % (0-12); Neutrophils # (Auto) 1.5 Thou/mm3 (1.8-7.7); Neutrophils % (Auto) 41 % (37-80); Nucleated Red Blood Cell # 0.00 Thou/mm3 (0.00-0.00); Nucleated Red Blood Cell % 0 /100 WBC (0); Platelet Count 308 Thou/mm3 (140-440); RDW Standard Deviation 52.7 fL (36.4-46.3); Red Blood Count 3.30 Miln/mm3 (4.00-5.20); White Blood Count 3.6 Thou/mm3 (3.6-11.0)
[2025-04-21 09:52] LABS: Magnesium 1.5 mg/dL (1.6-2.6)
[2025-04-21 09:57] LABS: Alanine Aminotransferase 15 U/L (10-49); Albumin, Serum 4.7 gm/dL (3.4-4.8); Albumin/Globulin Ratio 2.9 (1.2-2.2); Alkaline Phosphatase 79 U/L (46-116); Anion Gap 12 (7-16); Aspartate Amino Transferase 20 U/L (0-34); BUN/Creatinine Ratio 20 Ratio (12-20); Bilirubin,Total 0.5 mg/dL (0.3-1.2); Blood Urea Nitrogen 18 mg/dL (9-23); Calcium 9.7 mg/dL (8.3-10.6); Calcium (Corrected) 9.7 mg/dL (8.5-10.1); Carbon Dioxide 26.6 mMol/L (20.0-31.0); Chloride 100 mMol/L (98-107); Creatinine (Component) 0.9 mg/dL (0.6-1.3); Free T4 (Free Thyroxine) 1.32 ng/dL (0.89-1.76); Globulin 1.6 gm/dL (2.3-3.5); Glucose 227 mg/dL (74-106); Osmolality,Calculated 286 (275-295); Potassium 3.8 mMol/L (3.4-5.1); Sodium 139 mMol/L (136-145); Thyroid Stimulating Hormone 0.89 uIU/mL (0.55-4.78); Total Protein 6.3 gm/dL (5.7-8.2); eGFR > 60 See Note
== END 2025-04-23 23:59 | disposition home or self-care (01) ==
LOC: SCTC 11:08
PROVIDERS: PCP Family Medicine; Referring Provider Family Medicine; Visit Provider Internal Medicine Hematology & Oncology
DX: Z51.11 Encounter for antineoplastic chemotherapy (principal); C22.1 Intrahepatic bile duct carcinoma; E11.9 Type 2 diabetes mellitus without complications; I10 Essential (primary) hypertension; Z79.84 Long term (current) use of oral hypoglycemic drugs
CPT/HCPCS: 36591; 80053; 83735; 84439; 84443; 84481; 85025; 96365; 96367; 96368; 96372; 96375; 96413; 96415; 96417; A4216; J1100; J1200; J1642; J1756; J2150; J2469; J2919; J3475; J3480; J3490; J7040; J7050; J9060; J9173; J9201; Q5101

== ENCOUNTER 2025-04-27 11:11 | Emergency (ER) | payer OTHER, SELFPAY ==
--- NOTE | 2025-04-27 11:19 | EKG_ITS ---
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
[2025-04-27 11:27] VITALS: BP 183/103; PULSE 100; RESP 16; TEMP 36.6; O2SAT 99; BMI 27.8
--- NOTE | 2025-04-27 11:29 | XR_ITS ---
CLINICAL INDICATION: Chest Pain TECHNIQUE: XR chest 2V Study date and time: 04/27/2025 11:44 a.m. COMPARISON: Chest radiograph 06/07/2024 FINDINGS: The cardiomediastinal silhouette is within normal limits of size. Redemonstration of very mild aortic arch atherosclerotic calcification. Interim placement of a Port-A-Cath with the tip of the catheter in the inferior portion of the SVC in good position.. No airspace opacities suggestive of pneumonia. Stable dense/partially calcified nodule in the left midlung field measuring approximately 16 mm transverse as before. No apparent new lung nodules or masses. No pleural effusion or pneumothorax. No acute osseous abnormality detected. Mild thoracic spondylosis reidentified. Surgical clips in the right upper quadrant are compatible with cholecystectomy. Limited views of the upper abdomen show moderate colonic fecal matter. IMPRESSION: No radiographic evidence for acute cardiopulmonary abnormality. Stable dense/partially calcified nodule in the left midlung field, mapping to the posterior aspect of the left upper lobe on prior CT. Interim placement of right-sided Port-A-Cath in good position. - This report was generated utilizing speech recognition software. -
--- NOTE | 2025-04-27 11:29 | PD.EDRME ---
Rapid Medical Screening Exam RME Arrival date/time: 04/27/25 11:11 69-year-old female with medical history significant for cancer last dose of chemo presents to the emergency department today for complaints of chest pain which began this morning Chief Complaint: Chest Pain Vital signs: Vital Signs Temperature 97.8 F 04/27/25 11:27 Pulse Rate 100 04/27/25 11:27 Respiratory Rate 16 04/27/25 11:27 Blood Pressure 183/103 H 04/27/25 11:27 Pulse Oximetry (%) 99 04/27/25 11:27 Oxygen Delivery Method Room Air 04/27/25 11:27 Vital signs reviewed by provider: Yes Exam: On exam patient well-appearing patient does not appear ill or toxic Patient hemodynamically stable Clinical Impression: Labs and imaging ordered
[2025-04-27 12:16] LABS: Basophils # (Auto) 0.0 Thou/mm3 (0.0-0.2); Basophils % (Auto) 0 % (0-2.5); Eosinophils # (Auto) 0.0 Thou/mm3 (0.0-0.5); Eosinophils % (Auto) 0 % (0-10); Hematocrit 32.9 % (36.0-46.0); Hemoglobin 11.3 g/dL (12.0-16.0); Immature Granulocytes Auto 1.09 Thou/mm3 (0.00-0.00); Lymphocytes # (Auto) 3.5 Thou/mm3 (1.0-4.8); Lymphocytes % (Auto) 12 % (10-50); Mean Corpuscular HGB Conc 34.3 g/dl (31.0-37.0); Mean Corpuscular Hemoglobin 33.0 pg (25.0-35.0); Mean Corpuscular Volume 96 fL (80-100); Monocytes # (Auto) 1.2 Thou/mm3 (0.0-0.8); Monocytes % (Auto) 4 % (0-12); Neutrophils # (Auto) 23.1 Thou/mm3 (1.8-7.7); Neutrophils % (Auto) 80 % (37-80); Nucleated Red Blood Cell # 0.05 Thou/mm3 (0.00-0.00); Nucleated Red Blood Cell % 0 /100 WBC (0); Platelet Count 149 Thou/mm3 (140-440); RDW Standard Deviation 53.9 fL (36.4-46.3); Red Blood Count 3.42 Miln/mm3 (4.00-5.20); White Blood Count 28.9 Thou/mm3 (3.6-11.0)
[2025-04-27 12:27] LABS: INR 1.0 (0.9-1.3); Partial Thromboplastin Time 25.9 Seconds (22.0-36.0); Prothrombin Time 10.3 Seconds (9.0-12.2)
[2025-04-27 12:39] LABS: B-Type Natriuretic Peptide < 20 pg/mL (0-100)
[2025-04-27 12:40] LABS: Alanine Aminotransferase 18 U/L (10-49); Albumin, Serum 5.1 gm/dL (3.4-4.8); Albumin/Globulin Ratio 2.8 (1.2-2.2); Alkaline Phosphatase 139 U/L (46-116); Anion Gap 11 (7-16); Aspartate Amino Transferase 20 U/L (0-34); BUN/Creatinine Ratio 18 Ratio (12-20); Bilirubin,Total 0.5 mg/dL (0.3-1.2); Blood Urea Nitrogen 14 mg/dL (9-23); Calcium 10.1 mg/dL (8.3-10.6); Calcium (Corrected) 10.1 mg/dL (8.5-10.1); Carbon Dioxide 23.8 mMol/L (20.0-31.0); Chloride 98 mMol/L (98-107); Creatinine (Component) 0.8 mg/dL (0.6-1.3); Estimated Creatinine Clearance 56.4 mL/min (>60); Globulin 1.8 gm/dL (2.3-3.5); Glucose 126 mg/dL (74-106); Magnesium 1.8 mg/dL (1.6-2.6); Osmolality,Calculated 268 (275-295); Potassium 4.1 mMol/L (3.4-5.1); Sodium 133 mMol/L (136-145); Total Protein 6.9 gm/dL (5.7-8.2); Troponin I < 0.002 ng/mL (0.0-0.045); eGFR > 60 See Note
[2025-04-27 20:33] VITALS: BP 179/98; PULSE 80; RESP 16; TEMP 36.6; O2SAT 99
--- NOTE | 2025-04-27 20:53 | PD.EDADULT ---
ED General RME/HPI General Chief complaint: Chest Pain Stated complaint: CHEST PAIN RADIATING TO L) BACK Time Seen by Provider: 04/27/25 20:45 Arrival date/time: 04/27/25 11:11 CC: Chest pain HPI ongoing chest pressure/pain for the last 12 hours. Patient denies shortness of breath difficulty breathing. The patient is on chemotherapy for cholangiocarcinoma, patient's note from the oncologist is a poor prognosis but the patient wants to continue with chemotherapy. Patient states she has received 5 shots over the past 5 days to boost her immune system . Denies fever chills shortness of breath difficulty breathing nausea or vomiting. No other complaints patient is sitting quietly then laying quietly for the exam without any complications. RME / HPI RME / HPI narrative: 04/27/25 11:11 69-year-old female with medical history significant for cancer last dose of chemo presents to the emergency department today for complaints of chest pain which began this morning Exam: On exam patient well-appearing patient does not appear ill or toxic Patient hemodynamically stable Impression: Labs and imaging ordered Related Data Home Medications ?Medication ?Instructions ?Recorded ?Confirmed atorvastatin 10 mg tablet 1 tab PO HS 12/20/21 06/04/24 lisinopril 10 mg tablet 1 tab PO HS 12/20/21 06/04/24 metformin 500 mg tablet 1 tab PO HS 12/20/21 06/04/24 Allergies Allergy/AdvReac Type Severity Reaction Status Date / Time adhesive tape Allergy Severe Hives Verified 04/27/25 11:15 nickel Allergy Severe Hives Verified 04/27/25 11:15 Review of Systems Review of Systems Narrative Review of Systems: GEN: No fever, no chills, no weight loss EYES: No discharge, no visual changes, no pain HEENT: No ear pain, no congestion, no sore throat PULM: No shortness of breath, no cough, no congestion CV: + chest pain, no dyspnea on exertion, no palpitations GI: No nausea, no vomiting, no diarrhea, no pain, no constipation : No frequency, no urgency, no dysuria MUSC/SKEL: No joint pain, no back pain SKIN: No rash PSYCH: No hallucinations, no depression HEME/LYMPH: No easy bleeding or bruising tendencies NEURO: No weakness, no headache Past Medical History Past Medical History NEUROLOGIC: Negative Neurological Disorders or Seizures CARDIAC: Positive Cardiac Disorders, Hypercholesterolemia and Hypertension; Negative Congestive Heart Failure RESPIRATORY: Negative Chronic Obstructive Pulmonary Disease (COPD) or Asthma GASTROINTESTINAL: Positive Gastrointestinal Disorders, Gall Bladder Disease and Obesity; Negative Hepatitis GENITOURINARY: Negative Genitourinary Disorders or Renal Disease REPRODUCTIVE: Positive Previous Pregnancies MUSCULOSKELETAL: Positive Musculoskeletal Disorders and Arthritis ENT: Positive Cataracts and Glaucoma ENDOCRINE: Positive Endocrine Disorders and Diabetes Mellitus Type 2; Negative Diabetes Mellitus Type 1 HEMATOLOGIC: Negative Blood Disorders or Sickle Cell Disease OTHER HISTORY: Positive Hospitalization, Chicken Pox and Mumps; Negative Autoimmune Disease, Shingles, Blood Transfusions, Blood Transfusion Reaction, Anesthesia Reactions or Cancer Family History FAMILY HISTORY: Positive Family Cardiac Disorders, Family Cancer and Family Surgery; Negative Family Psychiatric Problems, Family Respiratory Disorders, Family Gastrointestinal Problems or Family Anesthesia Reaction Social History SMOKING STATUS: Never smoker SUBSTANCE USE: does not use ED Exam Narrative Physical exam: [General: Not in any acute distress Head normocephalic HEENT: Within acceptable limits Neck is supple nontender Chest equal chest rise nontender to palpation Respiratory: Clear to auscultation no wheezes crackles or rubs CV: Rate rhythm is regular no murmurs rubs or clicks Abdomen is soft nontender no masses positive bowel sounds all 4 quadrants Back: No CVA tenderness no spinous process tenderness from cervical spine thoracic and lumbar spine Skin: Intact no petechiae rash induration ulceration or crepitus Extremities: Moving all extremity against resistance cap refill less than 2 seconds neurosensory intact Neuro: Awake alert oriented x3 Glascow coma 15 no focal deficits] Course Course Course Narrative: I suspect but have no proof of the patient has been getting Neupogen for her chemotherapy that hence the elevated white blood cell count. The patient is nontoxic-appearing not in any acute distress and has no indications of acute coronary syndrome or infectious process. At this time comfortable discharging the patient home and she is to follow-up with her oncologist or return to the emergency room if there is worsening chest pain. Quality Measures none Orders Category Date Time Status Staff Anesthetist NOW Care 04/27/25 11:29 Active EKG (ED ONLY) *Do not use* NOW Care 04/27/25 11:19 Completed EKG (ED Only) Stat Exams 04/27/25 11:19 Draft XR chest 2V Stat Exams 04/27/25 11:29 Completed B-Type Natriuretic Peptide Stat Lab 04/27/25 12:01 Completed CBC Stat Lab 04/27/25 12:01 Completed Comprehensive Metabolic Panel Stat Lab 04/27/25 12:01 Completed Magnesium Stat Lab 04/27/25 12:01 Completed Partial Thromboplastin Time Stat Lab 04/27/25 12:01 Completed Prothrombin Time with INR Stat Lab 04/27/25 12:01 Completed Troponin I Stat Lab 04/27/25 12:01 Completed Vital Signs Vital signs: Vital Signs Temperature 97.8 F 04/27/25 11:27 Pulse Rate 100 04/27/25 11:27 Respiratory Rate 16 04/27/25 11:27 Blood Pressure 183/103 H 04/27/25 11:27 Pulse Oximetry (%) 99 04/27/25 11:27 Oxygen Delivery Method Room Air 04/27/25 11:27 Discharge Plan Plan Patient Disposition: HOME (Self Care) Patient condition on transfer: Stable Prescriptions/Referrals Prescriptions/Med Rec: No Action metformin 500 mg tablet 1 tab PO HS atorvastatin 10 mg tablet 1 tab PO HS lisinopril 10 mg tablet 1 tab PO HS Patient Comments: TAKE 1 TABLET BY MOUTH EVERY DAY Referrals: Chinyere Fry MD [Primary Care Provider, Family Practice] - In 1 week Problem List Clinical Impression: Chest pain Patient/Caregiver Discharge Instructions Education Materials: ED Chest Pain, Uncertain Cause Additional Instructions: Follow-up with oncologist and your primary care doctor if there is a worsening chest pain return to the emergency room for reevaluation. Print Language: Kinyarwanda Stand Alone Forms: Pattie Award Info., Work/School Release, Patient Portal Info Letter PA/HEALTH PRACTICE MANAGER Supervising Physician PA/HEALTH PRACTICE MANAGER Supervising Physician: Elbert West ENP [facility] Clinical Information Provided by: patient Medical Records reviewed [facility] Meds/Rx considered, not ordered None Labs/Rad/Tests considered, not ordered None Chronic Illness/Social Conditions Explain: Cholangiocarcinoma diabetes hypertension EKG Interpretation EKG #1: EKG Interpretation: EKG performed at 1125 shows ventricular rate of 90 CO interval 137 QRS of 80 QTc of 385 this is sinus rhythm. Labs Labs: interpreted by pr Lab(s) Interpretation(s): CBC shows leukocytosis of 28.9 no left shift. Neutrophils at 23%. No bandemia. Coags within excepted limits CMP shows sodium 133 no other electrolyte imbalances renal impairment transaminitis or T. bili elevation. Alk phos at 139. Albumin of 5.1. Imaging Imaging interpretation: interpreted by me Imaging Interpretation(s): Chest x-ray is negative for any acute finding Diagnosis Differential Diagnosis ED Complaint MDM: ACS CA pneumonia
== END 2025-04-27 21:11 | disposition home or self-care (01) ==
PROVIDERS: Nurse Practitioner Primary Care; Emergency Provider Emergency Medicine; PCP Family Medicine
DX: R07.9 Chest pain, unspecified (principal)
CPT/HCPCS: 36415; 71046; 80053; 83735; 83880; 84484; 85025; 85610; 85730; 93005; 99283

== ENCOUNTER 2025-05-13 12:53 | Outpatient (RCR) | payer OTHER, SELFPAY | END 2025-05-23 23:59 | disposition home or self-care (01) | LOC: SCTC 12:53 | PROVIDERS: PCP Family Medicine; Referring Provider Internal Medicine Hematology & Oncology; Visit Provider Internal Medicine Hematology & Oncology | DX: C22.1 Intrahepatic bile duct carcinoma (principal); C78.6 Secondary malignant neoplasm of retroperitoneum and peritoneum; E11.9 Type 2 diabetes mellitus without complications; I10 Essential (primary) hypertension; Z90.49 Acquired absence of other specified parts of digestive tract; Z79.84 Long term (current) use of oral hypoglycemic drugs | CPT/HCPCS: 96365; 96372; 96375; A4216; J1642; J1756; J2919; J3490; J7040; Q5101 ==

== ENCOUNTER 2025-06-22 13:02 | Outpatient (RCR) | payer OTHER, SELFPAY ==
[2025-05-24 14:41] LABS: Basophils # (Auto) 0.1 Thou/mm3 (0.0-0.2); Basophils % (Auto) 1 % (0-2.5); Eosinophils # (Auto) 0.2 Thou/mm3 (0.0-0.5); Eosinophils % (Auto) 3 % (0-10); Hematocrit 34.9 % (36.0-46.0); Hemoglobin 11.8 g/dL (12.0-16.0); Immature Granulocytes Auto 0.02 Thou/mm3 (0.00-0.00); Lymphocytes # (Auto) 1.9 Thou/mm3 (1.0-4.8); Lymphocytes % (Auto) 36 % (10-50); Mean Corpuscular HGB Conc 33.8 g/dl (31.0-37.0); Mean Corpuscular Hemoglobin 32.7 pg (25.0-35.0); Mean Corpuscular Volume 97 fL (80-100); Monocytes # (Auto) 0.6 Thou/mm3 (0.0-0.8); Monocytes % (Auto) 11 % (0-12); Neutrophils # (Auto) 2.6 Thou/mm3 (1.8-7.7); Neutrophils % (Auto) 48 % (37-80); Nucleated Red Blood Cell # 0.00 Thou/mm3 (0.00-0.00); Nucleated Red Blood Cell % 0 /100 WBC (0); Platelet Count 203 Thou/mm3 (140-440); RDW Standard Deviation 50.0 fL (36.4-46.3); Red Blood Count 3.61 Miln/mm3 (4.00-5.20); White Blood Count 5.4 Thou/mm3 (3.6-11.0)
[2025-05-24 15:02] LABS: Alanine Aminotransferase 21 U/L (10-49); Albumin, Serum 4.5 gm/dL (3.4-4.8); Albumin/Globulin Ratio 2.3 (1.2-2.2); Alkaline Phosphatase 84 U/L (46-116); Anion Gap 10 (7-16); Aspartate Amino Transferase 19 U/L (0-34); BUN/Creatinine Ratio 15 Ratio (12-20); Bilirubin,Total 0.3 mg/dL (0.3-1.2); Blood Urea Nitrogen 16 mg/dL (9-23); Calcium 9.7 mg/dL (8.3-10.6); Calcium (Corrected) 9.7 mg/dL (8.5-10.1); Carbon Dioxide 25.4 mMol/L (20.0-31.0); Chloride 104 mMol/L (98-107); Creatinine (Component) 1.1 mg/dL (0.6-1.3); Globulin 2.0 gm/dL (2.3-3.5); Glucose 184 mg/dL (74-106); Osmolality,Calculated 283 (275-295); Potassium 4.2 mMol/L (3.4-5.1); Sodium 139 mMol/L (136-145); Thyroid Stimulating Hormone 1.14 uIU/mL (0.55-4.78); Total Protein 6.5 gm/dL (5.7-8.2); eGFR 54 See Note
[2025-05-24 15:27] LABS: Glucose Estimated Average 146 mg/dL (80-131); Hemoglobin A1C 6.7 % Hgb (4.8-6.0)
--- NOTE | 2025-06-21 05:36 | CTCFLWUP_ITS ---
Patient: ELY LINN : 1955 Page 5 of 5 FOLLOW UP NOTE DATE OF SERVICE: 06/02/2025 NAME: ELY LINN ACCOUNT: [id number] : 1955 AGE: 70 INTERVAL HISTORY: Patient patient has completed 6 cycles of chemotherapy and immunotherapy. overall tolerating well. Here to discuss naterra results. 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 DATE OF DIAGNOSIS: August 2024 STAGE/TNM: IV T4 N1 M1 TREATMENT HISTORY: Care?Plan Start?Date Cycle Day Intent Durvalumab,?cisplatin?and?gemcitabine?cholangiocarcinoma?regimen?1 11/19/2024 1 21 Palliative VENOfer?200mg?IV?wkly?for?10?weeks 04/02/2025 1 70 Palliative Durvalumab?maintenance?cholangiocarcinoma?regimen?2 05/25/2025 1 28 Maintenance HISTORY OF PRESENT ILLNESS: Chief Complaint Follow-up for stage 4 cholangiocarcinoma, asymptomatic History of Present Illness Ely Linn, a patient with type 2 diabetes mellitus and hypertension, presents for follow-up of newly diagnosed stage 4 cholangiocarcinoma. She was initially seen for intermittent right upper quadrant pain, which led to a laparoscopic cholecystectomy on June 05, 2024. The pathology revealed poorly differentiated adenocarcinoma. Following the cholecystectomy, Ms. Linn underwent further diagnostic procedures, including an MRCP that showed acute narrowing of the distal common bile duct. A staging CT scan revealed a possible mass near the cystic duct clips. On September 07, 2024, she underwent an open procedure where masses were found in the gallbladder fossa, cystic duct and bile duct junction, liver, and retroperitoneum. Pathology confirmed metastatic disease in the liver and peritoneum. Ms. Linn has completed one cycle of chemotherapy with XtdPfbmtzja-Ucaulelja-Xiptuaetqt. She is seen today, October 19, 2024, for follow- up and reports being asymptomatic and doing very well. The patient understands her diagnosis of stage 4 cholangiocarcinoma and its poor prognosis but expresses a desire to continue chemotherapy. She has been adherent to her treatment plan thus far. PET CT scan is showing decrease in size of lymph node as well as peritoneal mets Medical History - Type 2 diabetes mellitus, managed with metformin - Hypertension Surgical History - Open procedure on 09/07/2024 for removal of masses in gallbladder fossa, cystic duct and bile duct junction, liver, and retroperitoneum - Laparoscopic cholecystectomy on 06/05/2024 for gallbladder stones, resulting in diagnosis of poorly differentiated adenocarcinoma Medications and Supplements - Metformin - GemCytabine 1000 mg/m? on day 1 and day 8 - Cisplatin 25 mg/m? on day 1 and day 8 - Durvalumab 1500 mg on day 1 Review of Systems General: Negative for fever, chills, fatigue, muscle aches, appetite changes, or weight changes. Gastrointestinal: Negative for abdominal pain. OTHER MEDICAL HISTORY/CONDITIONS: Malignant cholangiocarcinoma - dx 06/05/24 HTN Hyperlipidemia Diabetes Laproscopic cholecystectomy 06/05/24 - Dr. 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 atorvastatin - 10 mg 1 tab Daily 2. lisinopril - 10 mg 1 tab Daily 3. metFORMIN - 500 mg 1 tab Daily Medications Last Reconciled by Chinyere Robledo MD on 06/02/2025 ALLERGIES: Iodine and Iodide Containing Products REVIEW OF SYSTEMS: A complete 14-point review of systems was performed and is negative except as noted in interval history. PHYSICAL EXAMINATION: VITAL SIGNS: Temperature?97.6, B/P?159/90, Oxygen?Saturation?96% Weight?150?lbs (Change?since?05/25/25:?0.4?lbs) PAIN: 0 - No pain ECOG Performance Status: 0 - Asymptomatic and fully active GENERAL APPEARANCE: Appears well, in no apparent distress, appropriately interactive. HEENT: Normocephalic, no temporal wasting, normal conjunctiva, no scleral icterus, normal hearing, lips without lesions, neck normal range of motion. CARDIOVASCULAR: Not assessed. PULMONARY: Normal respiratory effort, no respiratory distress or use of accessory muscles, speaking in full sentences, no tachypnea. EXTREMITIES: No pedal edema or cyanosis. SKIN: Normal skin appearance. NEUROLOGIC: Alert and oriented x4. PSHYCHIATRIC: Appropriate affect, mood normal, behavior normal, intact thought and speech. LABORATORY DATA: I have personally reviewed and interpreted each of the patient?s relevant lab tests, abnormal findings are below: Date 04/27/25 05/24/25 ??WHITE?BLOOD?COUNT?(Thou/mm3) 28.9?H 5.4 ??RED?BLOOD?COUNT?(Miln/mm3) 3.42?L 3.61?L ??HEMOGLOBIN?(gm/dl) 11.3?L 11.8?L ??HEMATOCRIT?(%) 32.9?L 34.9?L ??PLATELET?COUNT?(Thou/mm3) 149 203 ??NEUTROPHILS?%,?AUTO?(%) 80 48 ??LYMPH?%,?AUTO?(%) 12 36 ??NEUTROPHILS,?AUTO?(Thou/mm3) 23.1?H 2.6 ??GLUCOSE,RANDOM?(mg/dL) 126?H 184?H ??BLOOD?UREA?NITROGEN?(mg/dL) 14 16 ??CREATININE?(mg/dL) 0.80 1.10 ??SODIUM?(mmol/L) 133?L 139 ??POTASSIUM?(mmol/L) 4.1 4.2 ??CHLORIDE?(mmol/L) 98 104 ??CrCl?(CandG)?(ml/min) 58.09 42.68 ??AST/SGOT?(Unit/L) 20 19 ??ALT/SGPT?(Unit/L) 18 21 ??ALKALINE?PHOSPHATASE?(Unit/L) 139?H 84 ??BILIRUBIN,?TOTAL?(mg/dL) 0.5 0.3 ??PROTEIN?TOTAL?(gm/dl) 6.9 6.5 ??ALBUMIN,?SERUM?(gm/dl) 5.1?H 4.5 ??GLOBULIN?(gm/dl) 1.8?L 2.0?L ??ALBUMIN/GLOBULIN?RATIO 2.8?H 2.3?H ??CALCIUM,?SERUM?(mg/dL) 10.1 9.7 ??CALCIUM?SERUM?(CORRECTED)?(mg/dL) 10.1 9.7 ASSESSMENT/PLAN: Ely Linn, female patient with type 2 diabetes mellitus and hypertension, presents for follow-up of newly diagnosed stage 4 cholangiocarcinoma with metastases to liver and peritoneum. Stage 4 Cholangiocarcinoma Assessment: Ms. Linn was diagnosed with metastatic extrahepatic cholangiocarcinoma following a laparoscopic cholecystectomy on 06/05/2024, which revealed poorly differentiated adenocarcinoma. Subsequent imaging studies, including MRCP and PET-CT, confirmed the diagnosis and showed disease progressi on. On 09/07/2024, an open procedure revealed masses in the gallbladder fossa, cystic duct and bile duct junction, liver, and retroperitoneum. Pathology confirmed poorly differentiated carcinoma with metastases to the liver and peritoneum. Molecular studies showed intact expression of MLH1, MSH2, MSH6, PMS2, positive for clonidine, 18.2 expression by ISC, and HER2 negative. The patient has completed one cycle of chemotherapy with UuqKbwuzpaj-[id number]-Przgpffiiy and is currently asymptomatic. -Patient completed 6 cycles of chemotherapy regimen: GemCytabine 1000 mg/m? on days 1 and 8, Cisplatin 25 mg/m? on days 1 and 8, Durvalumab 1500 mg on day 1 Continue chemo immunotherapy Get PET CT scan results from [facility] CAT DNA shows increasing number Will get CT scan chest abdomen pelvis with IV contrast as I am unable to obtain any images from [facility] with CT scan results Continue durvalumab for now type 2 Diabetes Mellitus Assessment: Patient has a history of type 2 diabetes mellitus, currently managed with metformin. Plan: - Continue current management with metformin (dose not specified) Hypertension Assessment: Patient has a history of hypertension, Plan: - Continue current antihypertensive management (pcp) ORDERS: Order # Description [id number] Comprehensive Metabolic Panel - 12 + CBC with Auto Diff + CA 19-9 + CEA [id number] CT Scan + Abdomen and Pelvis + Chest + With W/O Contrast [id number] Follow Up 2 Months [id number] RETURN TO CLINIC: I reviewed the diagnosis, prognosis, and recommended treatment/procedure options with the patient (and/or their legal admitting representative), including the potential benefits, risks, side effects and alternative therapies. We also discussed the option of no treatment and the possibility of clinical trial participation, if applicable. All questions were addressed, and they demonstrated understanding. They provided informed consent to proceed with the proposed plan of care. BILLING AND COMPLIANCE: I reviewed external records from providers outside my specialty as summarized above. I spent a total of 50 minutes on this patient?s care on the day of their visit excluding time spent related to any billed procedures. This time includes time spent with the patient as well as time spent documenting in the medical record, reviewing patients records and tests, obtaining history, placing orders, communicating with other healthcare professionals, counseling the patient, family or caregiver, and/or care coordination for the diagnoses above. Electronically Signed by: {Object.Sanct_ID*PnP.NameFL@M}, {Object.Sanct_ID*PnP.Suffix@U} D: {Object.Sanct_Date} T: {Object.Sanct_Time} CC: PCP: Chinyere Erickson Referring: Chinyere Erickson This document was completed utilizing speech recognition software. Grammatical errors, random word insertions, pronoun errors, and incomplete sentences are an occasional consequence of this system due to software limitations, ambient noise, and hardware issues. Any formal questions or concerns about the content, text or information contained within the body of this dictation should be directly addressed to the provider for clarification.
[2025-06-21 16:39] LABS: Basophils # (Auto) 0.0 Thou/mm3 (0.0-0.2); Basophils % (Auto) 1 % (0-2.5); Eosinophils # (Auto) 0.2 Thou/mm3 (0.0-0.5); Eosinophils % (Auto) 3 % (0-10); Hematocrit 34.5 % (36.0-46.0); Hemoglobin 11.7 g/dL (12.0-16.0); Immature Granulocytes Auto 0.01 Thou/mm3 (0.00-0.00); Lymphocytes # (Auto) 2.1 Thou/mm3 (1.0-4.8); Lymphocytes % (Auto) 36 % (10-50); Mean Corpuscular HGB Conc 33.9 g/dl (31.0-37.0); Mean Corpuscular Hemoglobin 31.7 pg (25.0-35.0); Mean Corpuscular Volume 94 fL (80-100); Monocytes # (Auto) 0.6 Thou/mm3 (0.0-0.8); Monocytes % (Auto) 10 % (0-12); Neutrophils # (Auto) 3.0 Thou/mm3 (1.8-7.7); Neutrophils % (Auto) 51 % (37-80); Nucleated Red Blood Cell # 0.00 Thou/mm3 (0.00-0.00); Nucleated Red Blood Cell % 0 /100 WBC (0); Platelet Count 221 Thou/mm3 (140-440); RDW Standard Deviation 45.1 fL (36.4-46.3); Red Blood Count 3.69 Miln/mm3 (4.00-5.20); White Blood Count 5.9 Thou/mm3 (3.6-11.0)
[2025-06-21 17:01] LABS: Alanine Aminotransferase 18 U/L (10-49); Albumin, Serum 4.3 gm/dL (3.4-4.8); Albumin/Globulin Ratio 1.8 (1.2-2.2); Alkaline Phosphatase 80 U/L (46-116); Anion Gap 12 (7-16); Aspartate Amino Transferase 21 U/L (0-34); BUN/Creatinine Ratio 21 Ratio (12-20); Bilirubin,Total 0.3 mg/dL (0.3-1.2); Blood Urea Nitrogen 15 mg/dL (9-23); Calcium 9.7 mg/dL (8.3-10.6); Calcium (Corrected) 9.7 mg/dL (8.5-10.1); Carbon Dioxide 27.2 mMol/L (20.0-31.0); Chloride 104 mMol/L (98-107); Creatinine (Component) 0.7 mg/dL (0.6-1.3); Globulin 2.4 gm/dL (2.3-3.5); Glucose 121 mg/dL (74-106); Osmolality,Calculated 286 (275-295); Potassium 3.7 mMol/L (3.4-5.1); Sodium 143 mMol/L (136-145); Thyroid Stimulating Hormone 0.70 uIU/mL (0.55-4.78); Total Protein 6.7 gm/dL (5.7-8.2); eGFR > 60 See Note
== END 2025-06-23 23:59 | disposition home or self-care (01) ==
LOC: SCTC 13:02
PROVIDERS: PCP Family Medicine; Referring Provider Family Medicine; Visit Provider Internal Medicine Hematology & Oncology
DX: Z51.11 Encounter for antineoplastic chemotherapy (principal); C22.1 Intrahepatic bile duct carcinoma; E11.9 Type 2 diabetes mellitus without complications; Z79.84 Long term (current) use of oral hypoglycemic drugs; I10 Essential (primary) hypertension
CPT/HCPCS: 36591; 80053; 83036; 84443; 85025; 96365; 96367; 96375; 96413; 99212; A4216; J1642; J1756; J2405; J3490; J7040; J9173; G0463